=== PATIENT | female | born 1935 | race Caucasian/White ===

== ENCOUNTER 2019-10-24 14:33 | Emergency (ER) | payer MEDICARE, OTHER ==
[2019-10-24 14:50] VITALS: BP 134/43; PULSE 81
--- NOTE | 2019-10-24 15:07 | EDM.PDOC ---
ED HPI GENERAL MEDICAL PROBLEM - General Chief Complaint: General Time Seen by Provider: 10/24/19 15:00 Source of Information: Reports: Patient, Family History Limitations: Reports: No Limitations - History of Present Illness INITIAL COMMENTS - FREE TEXT/NARRATIVE: Patient comes emergency department today with her son with concerns of bleeding from surgical incision site. About 10 days ago the patient was bridged on her Coumadin which she takes for history of strokes with Lovenox and had a biopsy done in the left axilla with concerns of metastatic breast cancer. She developed a hematoma following the surgery. Has been followed by her primary care doctor Dr. Comfort Abreu in the clinic. Hematoma they discontinued her Coumadin and she started it again on Thursday and she has taken 2 doses of it. Today she noticed that she started draining blood from the incision site of the left axilla. No recent falls trauma or injury to the area. The hematoma really has not expanded and it is about the same size she relates but the pressure and the pain that she has had is actually improved quite a bit ever since the bleeding started. No weakness dizziness lightheadedness. No chest pain no shortness of breath or difficulty breathing. - Related Data Allergies Allergy/AdvReac Type Severity Reaction Status Date / Time No Known Allergies Allergy Verified 10/24/19 14:46 Past Medical History Oncologic (Cancer) History: Reports: Breast Social & Family History - Tobacco Use Smoking Status *Q: Never Smoker ED ROS GENERAL - Review of Systems Review Of Systems: See Below ED EXAM, GENERAL - Physical Exam Exam: See Below Exam Limited By: No Limitations General Appearance: Alert, WD/WN, No Apparent Distress Respiratory/Chest: No Respiratory Distress, Lungs Clear, No Accessory Muscle Use , Chest Non-Tender Cardiovascular: Normal Peripheral Pulses, Regular Rate, Rhythm Peripheral Pulses: 2+: Radial (L), Radial (R) Extremities: Other (In the left axilla there is a transverse incision with a small amount of dripping blood. The hematoma in the axilla is very hard and not boggy. The incision is well approximated. There is quite a bit of bruising to the axilla and the inner left humerus as well as the left breast. This appears to be quite old as it is in multiple stages of yellow and green and purple.) Neurological: Alert, Oriented, Normal Cognition, No Motor/Sensory Deficits Psychiatric: Normal Affect, Normal Mood Skin Exam: Warm, Dry Course - Vital Signs Last Recorded V/S: Last Vital Signs Temp 37.3 C 10/24/19 14:47 Pulse 81 10/24/19 14:47 Resp 16 10/24/19 14:47 BP 134/43 L 10/24/19 14:47 Pulse Ox 98 10/24/19 14:47 - Orders/Labs/Meds Labs: Laboratory Tests 10/24/19 10/24/19 Range/Units 15:14 15:14 WBC 12.5 H (4.0-10.0) x10^3/uL RBC 3.38 L (4.00-5.50) x10^6/uL Hgb 10.3 L (12.0-16.0) g/dL Hct 32.0 L (33.0-47.0) % MCV 94.7 H (78.0-93.0) fL MCH 30.5 (26.0-32.0) pg MCHC 32.2 (32.0-36.0) g/dL RDW Coeff of Lali 14.4 (10.0-15.0) % Plt Count 377 (130-400) x10^3/uL Neut % (Auto) 71.6 (50.0-80.0) % Lymph % (Auto) 10.2 L (25.0-50.0) % Sandoval % (Auto) 16.6 H (2.0-11.0) % Eos % (Auto) 1.4 (0.0-4.0) % Baso % (Auto) 0.2 (0.2-1.2) % PT 12.0 (10.0-12.8) SEC INR 1.1 L (2.0-3.5) APTT 27.3 (24.0-36.0) SEC - Re-Assessments/Exams Free Text/Narrative Re-Assessment/Exam: 10/24/19 16:30 Hemoglobin is down just under a gram. Her INR is 1.1. This really is a presentation of a hematoma that has started to drain. I really do not see any active bleeding. The patient actually feels better and the hematoma has improved in size according to the patient. The draining of the blood that she has is from the hematoma breaking down. We will have her recheck her hemoglobin tomorrow as well as her INR as planned and she does see her surgeon on return if bleeding worsens by any means she is comfortable with this plan her and her son's questions are answered. Departure - Departure Time of Disposition: 16:25 Disposition: Home, Self-Care 01 Clinical Impression: Postoperative haematoma Qualifiers: Surgical complication system/body Area: subcutaneous tissue Procedure type: non -dermatologic Qualified Code(s): L76.32 - Postprocedural hematoma of skin and subcutaneous tissue following other procedure - Discharge Information Referrals: Comfort Abreu, [Primary Care Provider] - Forms: ED Department Discharge Additional Instructions: Have your labs checked tomorrow as well in the clinic to include your INR and Hemoglobin. Your INR today was 1.1 and hgb 10.4. Keep a pressure dressing on the surgical site until you see the surgeon on thursday as planned. Return to the ED if new or worsening symptoms. Sepsis Event Note - Evaluation Sepsis Screening Result: No Definite Risk - Focused Exam Vital Signs: Vital Signs Temp Pulse Resp BP Pulse Ox 10/24/19 14:47 37.3 C 81 16 134/43 L 98 Date Exam was Performed: 10/24/19 Time Exam was Performed: 16:26 - Assessment/Plan Assessment:: Draining post op hematoma of the left axilla. Chronic anti-coagulation. Plan: Have your labs checked tomorrow as well in the clinic to include your INR and Hemoglobin. Your INR today was 1.1 and hgb 10.4. Keep a pressure dressing on the surgical site until you see the surgeon on thursday as planned. Return to the ED if new or worsening symptoms.
[2019-10-24 15:49] LABS: PTT,PARTIAL THROMBOPLSTIN TIME 27.3 SEC (24.0-36.0)
== END 2019-10-24 16:40 | disposition home or self-care (01) ==
LOC: VM.ED 14:33
DX: L76.32 Postprocedural hematoma of skin and subcutaneous tissue following other procedure (principal); Z79.01 Long term (current) use of anticoagulants
CPT/HCPCS: 36415; 85025; 85610; 85730; 99283; 99283-GF

== ENCOUNTER 2019-10-31 04:59 | Emergency (ER) | payer MEDICARE, OTHER ==
--- NOTE | 2019-10-31 05:16 | EDM.PDOC ---
ED HPI GENERAL MEDICAL PROBLEM - General Chief Complaint: Neuro Symptoms/Deficits Stated Complaint: stroke code Time Seen by Provider: 10/31/19 04:55 Source of Information: Reports: Patient, Family History Limitations: Reports: Language Barrier - History of Present Illness INITIAL COMMENTS - FREE TEXT/NARRATIVE: Pt. presents to ER with history of severe L sided upper and lower extremity weakness, L sided pronator drift, slurred speech, and L sided facial droop. Last known well approx. 10PM when the patient went to bed. She was symptomatic when she woke to use the bathroom this AM. Pt. son states that she has a history of R sided CVA (ischemic, L MCA, 5 years ago) and states that she always has some slurred speech, but states that with rehabilitation this has improved and she is readily understandable. Pt. was seen in ER for postoperative hematoma/bleeding following a breast biopsy. Son states that that patient's coumadin was discontinued for a time and it was restarted last Thursday or . Her last known INR was 1.1 on 10/23. Pt. denies any recent fall or trauma. No chest pain or shortness of breath. No recent cough, chest congestion, fever or chills. Pt. is starting Arimedex at this point for the breast cancer. Son states that she is a code 1. Pt. 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 At this point, they are wanting to proceed possible treatment of this stroke. Onset: Today - Related Data Allergies Allergy/AdvReac Type Severity Reaction Status Date / Time No Known Allergies Allergy Verified 10/31/19 05:04 Home Meds: Home Meds Atenolol [Tenormin] 50 mg PO ASDIRECTED 10/24/19 [History] Digoxin 125 mcg PO DAILY 10/24/19 [History] Felodipine [Felodipine ER] 2.5 mg PO DAILY 10/24/19 [History] Fluticasone Furoate [Arnuity Ellipta] 200 mcg IH DAILY 10/24/19 [History] Furosemide [Lasix] 40 mg PO DAILY 10/24/19 [History] Losartan [Cozaar] 50 mg PO DAILY 10/24/19 [History] Mirtazapine [Remeron] 7.5 mg PO BEDTIME 10/24/19 [History] Montelukast Sodium [Singulair] 10 mg PO DAILY 10/24/19 [History] Omeprazole Magnesium [Prilosec Otc] 20 mg PO DAILY 10/24/19 [History] Pravastatin Sodium [Pravachol] 20 mg PO DAILY 10/24/19 [History] Warfarin [Coumadin] 2.5 mg PO ASDIRECTED 10/24/19 [History] Acetaminophen [Pain Reliever] 1 - 2 tab PO Q4HR PRN 10/31/19 [History] Calcium Carbonate 1,200 mg PO DAILY 10/31/19 [History] Cyanocobalamin (Vitamin B-12) [B-12] 1,000 mcg PO DAILY 10/31/19 [History] Hydrocodone/Acetaminophen [[place] 5-325 Tablet] 0.5 - 1 tab PO Q6H PRN 10/31/19 [ History] Vit A/C/E AC/Znox/Cupric Oxide [Eye Vitamin-Minerals Tablet] 1 each PO DAILY 01/13 [History] Past Medical History Oncologic (Cancer) History: Reports: Breast ED ROS GENERAL - Review of Systems Review Of Systems: See Below Constitutional: Reports: No Symptoms. Denies: Fever, Chills, Malaise HEENT: Reports: No Symptoms Respiratory: Reports: No Symptoms Cardiovascular: Reports: No Symptoms Endocrine: Reports: No Symptoms GI/Abdominal: Reports: No Symptoms : Reports: No Symptoms Musculoskeletal: Reports: No Symptoms Skin: Reports: No Symptoms Neurological: Reports: Numbness, Paresthesia, Trouble Speaking, Weakness, Change in Speech Psychiatric: Reports: No Symptoms Hematologic/Lymphatic: Reports: No Symptoms Immunologic: Reports: No Symptoms ED EXAM, GENERAL - Physical Exam Exam: See Below Exam Limited By: No Limitations General Appearance: Alert, WD/WN, No Apparent Distress Eye Exam: Bilateral Eye: EOMI, Normal Fundi, Normal Inspection, PERRL Nose: Normal Inspection, Normal Mucosa, No Blood Throat/Mouth: Normal Inspection, Normal Lips, Normal Teeth, Normal Gums, Normal Oropharynx, Normal Voice, No Airway Compromise Head: Atraumatic, Normocephalic Neck: Normal Inspection, Supple, Non-Tender, Full Range of Motion Respiratory/Chest: No Respiratory Distress, Lungs Clear, Normal Breath Sounds, No Accessory Muscle Use, Chest Non-Tender Cardiovascular: No Edema, No Gallop, No JVD, No Murmur, Irregularly Irregular Peripheral Pulses: 3+: Dorsalis Pedis (L), Dorsalis Pedis (R), 4+: Radial (L), Radial (R) GI/Abdominal: Normal Bowel Sounds, Soft, Non-Tender, No Distention, No Mass (Female) Exam: Deferred Rectal (Female) Exam: Deferred Back Exam: Normal Inspection, Full Range of Motion Extremities: Normal Inspection, Normal Range of Motion, Non-Tender, No Pedal Edema, Normal Capillary Refill Neurological: Alert, Normal Cognition, Sensory/Motor Deficit, Other (See NIH stroke scale) Psychiatric: Normal Affect, Normal Mood Skin Exam: Warm, Dry, Intact, Normal Color, No Rash Lymphatic: No Adenopathy EKG INTERPRETATION Rhythm: A-Fib Course - Orders/Labs/Meds Orders: Active Orders 24 hr Category Date Time Status EKG Documentation Completion [RC] STAT Care 10/31/19 05:03 Ordered Head wo Cont [CT] Stat Exams 10/31/19 05:03 Ordered CBC WITH AUTO DIFF [HEME] Stat Lab 10/31/19 05:02 Ordered COMPREHENSIVE METABOLIC PN,CMP [CHEM] Stat Lab 10/31/19 05:02 Ordered CRP [C-REACTIVE PROTEIN] [CHEM] Stat Lab 10/31/19 05:03 Ordered INR,PT,PROTHROMBIN TIME [COAG] Stat Lab 10/31/19 05:02 Ordered TROPONIN I [CHEM] Stat Lab 10/31/19 05:02 Ordered TSH ULTRASENSITIVE [CHEM] Stat Lab 10/31/19 05:03 Ordered - Radiology Interpretation Free Text/Narrative:: Old left MCA stroke, no acute bleeding, trauma, or change from previous. Departure - Departure Time of Disposition: 05:56 Disposition: DC/Tfer to Acute Hospital 02 Condition: Critical Clinical Impression: CVA (cerebral vascular accident) - Discharge Information - Problem List Review Problem List Initiated/Reviewed/Updated: Yes - My Orders Last 24 Hours: My Active Orders 10/31/19 05:02 CBC WITH AUTO DIFF [HEME] Stat COMPREHENSIVE METABOLIC PN,CMP [CHEM] Stat INR,PT,PROTHROMBIN TIME [COAG] Stat TROPONIN I [CHEM] Stat 10/31/19 05:03 EKG Documentation Completion [RC] STAT Head wo Cont [CT] Stat CRP [C-REACTIVE PROTEIN] [CHEM] Stat TSH ULTRASENSITIVE [CHEM] Stat - Assessment/Plan Last 24 Hours: My Active Orders 10/31/19 05:02 CBC WITH AUTO DIFF [HEME] Stat COMPREHENSIVE METABOLIC PN,CMP [CHEM] Stat INR,PT,PROTHROMBIN TIME [COAG] Stat TROPONIN I [CHEM] Stat 10/31/19 05:03 EKG Documentation Completion [RC] STAT Head wo Cont [CT] Stat CRP [C-REACTIVE PROTEIN] [CHEM] Stat TSH ULTRASENSITIVE [CHEM] Stat Plan: Pt. will be transferred to [facility] as a stroke code. On initial exam, NIH stoke scale score was 13. She is outside of the window for TPA. Did discuss this with son who inquired about it. Also relative contraindication for previous CVA, as her INR is subtheraputic. Pt. will be transported via [facility] ground ambulance. She is a code 1. [facility] is accepting.
[2019-10-31 05:54] LABS: ANION GAP 11.2 mmol/L (10-20)
--- NOTE | 2019-10-31 08:41 | CT ---
[id number] CT/CT Head WO IV EXAM: CT Head WO IV CLINICAL DATA: LEFT SIDED FACIAL DROOP. DYSARTHRIA COMPARISON STUDY: December 23, 2012. FINDINGS: No intracranial hemorrhage, extra-axial fluid collection, mass, or acute ischemia. Stable area of encephalomalacia within the left MCA distribution consistent with old infarct. Generalized parenchymal atrophy with scattered areas of nonspecific white matter disease, commonly seen as sequela of chronic microvascular ischemia. Soft tissues are unremarkable. Paranasal sinuses and mastoid air cells are clear. IMPRESSION: No acute intracranial findings. Pk Bustamante DO 10/31/19 0872 Thank you for allowing us to participate in the care of your patient.
== END 2019-10-31 06:19 | disposition short-term general hospital (02) ==
LOC: VM.ED 04:59
DX: I63.9 Cerebral infarction, unspecified (principal); Z79.01 Long term (current) use of anticoagulants; Z79.899 Other long term (current) drug therapy
CPT/HCPCS: 36415; 70450; 80053; 84443; 84484; 85025; 85610; 86140; 93010; 99284-GF; 99285-25

== ENCOUNTER 2019-11-08 11:10 | Inpatient (IN) | payer MEDICARE, OTHER ==
[2019-11-11] MEDS ORDERED: Acetaminophen Susp 160 MG/5 ML 120 ML Bottle GTUBE PRN (13:27)
[2019-11-11] MEDS: [UNRECOGNIZED DRUG - OTHER] GTUBE SCH ×2 (16:55→21:46)
--- NOTE | 2019-11-11 19:52 | HP ---
CHIEF COMPLAINT: 1. A stroke, right middle cerebral artery due to subtherapeutic anticoagulation with dysarthria, dysphagia, and left-sided weakness. 2. Upper GI bleeding after G-tube placement, status post epiploic artery embolization on 11/06 as well as an EGD, which showed gastritis. 3. Acute blood loss anemia due to the GI bleeding status post 4 units of packed red blood cells. Hemoglobin 11 today. 4. Multilobar pneumonia, COVID testing negative. This is likely due to some aspiration from her stroke. She completed a course of antibiotics during her stay in [place] with Zithromax and Rocephin. The patient has been afebrile, but is still requiring some oxygen through her simple mask. 5. Acute on chronic diastolic heart failure exacerbation. EF 65%, 10/31/2019. 6. Atrial fibrillation with RVR. She has a known history of AFib. 7. Pseudogout in her fingers. This is improving. Looks like she got some Solu-Medrol while inpatient in [place]. 8. Recent diagnosis of stage III breast cancer of the left lymph nodes in axilla. Unfortunately, had a hematoma from her bleeding site. That has all resolved. The patient's Arimidex will be on hold as discussed with Oncology. 9. Leukocytosis. 10.Anemia. 11.Loose stools probably due to tube feeding. We will add some Benefiber. 12.Thyroid nodules. Recently evaluated and benign. 13.Essential hypertension, controlled. 14.Type 2 diabetes, diet controlled. 15.Hyperlipidemia and hypertriglyceridemia. 16.Mild depression. 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 18.Remote history of a previous stroke. The patient had made quite a good recovery from that. 19.Moderate mitral regurgitation. 20.Moderate pulmonary hypertension. 21.[id number] tricuspid regurgitation. REASON FOR ADMISSION: On the date of admission, this 84-year-old female who had an acute stroke with left-sided weakness on 10/30 was hospitalized for the past 11 days. Her course was complicated by spiking the fever and found to have pneumonia and the difficulty swallowing requiring a G-tube placement, which caused the GI bleed. The patient's condition has now stabilized to the point where she can be transitioned over to [facility] for further therapy. I spoke with her today. She was able to communicate with me things like she wanted the door left open, that she was in no pain. She could move her left arm and leg, could lift it up a little. The left arm was swollen, but it did not seem to bother her. She otherwise is receiving intermittent tube feeds. They are going well without difficulty. She is still having some blackish stools, but no signs of bleeding, and her hemoglobin had improved today. She was recently restarted on warfarin, got 4 mg today. Her last INR check on the was only 1.2. She is not coughing. She is using a simple mask, getting 4 L of oxygen to maintain her sats over 90%. The patient was specifically asked if she would want to return to [place] for further care and she said no. She also does not want CPR or breathing tube. She was changed to code 3 status. This was also discussed with her son, who was in agreement. SURGICAL HISTORY: Includes previous back surgery at the cervical spine in 1984, G-tube placement, hysterectomy, cataract surgeries, core needle biopsy in the past, lymph node biopsy recently. FAMILY HISTORY: Both parents are . A brother is . SOCIAL HISTORY: She is . She lives at home with her son, Herve. She has a daughter also in [place]. She is a nonsmoker. REVIEW OF SYSTEMS: The patient is unaware of any weight changes. No fever, no chills. She is having loose stools. No abdominal pain. Otherwise, all systems reviewed and found to be negative unless otherwise stated. PHYSICAL EXAMINATION: Vital Signs: Objectively, on exam on admission, her weight was 61.8 kg, temperature 96.8, pulse 82, blood pressure 152/78, respiratory rate 18, and O2 of 98% on the 4 L. General: She is in no acute distress. Heart: Irregularly irregular with murmur. Lungs: Lung sounds are decreased with just some rhonchi noted more centrally. Distally, some decreased sounds, but no wheezing. No crackles. Abdomen: Nondistended, soft, nontender. G-tube in place with no drainage. Extremities: Warm and dry. She does have that 2+ edema over the left hand. She is able to lift up the left arm and move her fingers. She is also able to move the left leg and ankle. Neurologic: Her speech is very expressive aphasia. She is clearly able to shake her head yes and no and get out a few noises but not clear words. Otherwise, mood, she appeared happy to actually see me and be back in [facility], but overall slightly down from how things were for her several weeks ago. Genitourinary: Otherwise, Nursing did report that she is incontinent of urine and stool. Bottom is red, but no open sores. Her left axilla was examined by myself. There is still some bruising over the breast, but her incisions are well healed. There is no ongoing bleeding. LABORATORY WORK: From [place] today shows the white count slightly up at 13.2, hemoglobin 11.2, platelets 300. Neutrophil percent was just 78. Yesterday, her white count was 12.3. Basic panel: Glucose 112, BUN 14, creatinine 0.6, sodium 144, potassium 3.9, chloride 105, bicarb 33, calcium 9.1, phosphorus normal, magnesium normal. Another Accu-Chek was 101. ASSESSMENT: 1. Acute right middle cerebral artery stroke due to atrial fibrillation, well off Coumadin due to a hematoma with dysarthria and dysphagia as well as left-sided weakness. She will be working with Speech, PT, and OT. 2. Dysphagia and malnutrition. The patient is on the tube feedings. We will get the dietitian involved. She is tolerating them so far, but we will add the Benefiber for the loose stools. We can check an albumin level in a few days; however, it was low on 11/02 at 3.1. 3. Recent diagnosis of stage III breast cancer. The Arimidex will be on hold. The patient and son understand that this is a palliative sort of treatment and I do not expect anything to happen over the next couple of weeks from this as we hope she improves with her swallowing and can take it at that point. 4. Anemia, mild now, but had some acute blood loss from gastrointestinal bleeding. This seems to have stabilized. We will recheck a hemoglobin tomorrow. 5. Mild leukocytosis. We will check a CBC tomorrow. 6. Multilobar pneumonia treated with Rocephin and azithromycin. We will continue her on the oxygen and wean as able. 7. Atrial fibrillation, chronic. Now, her rates are controlled. She has been restarted on Coumadin. 4 mg was given today. Then, she will be on her 2.5 mg dosing daily. I am going to recheck also tomorrow when I draw the CBC just to see where she is. 8. Essential hypertension. The patient is on her atenolol for that. She also is getting some Lasix through the G-tube. 9. Chronic diastolic heart failure. She is on Lasix. 10.Depression. She is on the Remeron. 11.Pseudogout. We will continue to monitor. PLAN: At this point, the patient will be admitted to swing bed cares with PT, OT, speech. Dietitian also to follow. We will have her working with therapies. We will see about getting something to help with swelling on that left arm. We will continue tube feedings. We will start Benefiber. We will monitor lab work. The patient is a code level 3. No bridging for DVT prophylaxis recommended at this point given her recent bleeding risk. She will receive suctioning as well like she did in [place]. We will have the head of the bed elevated with turning and repositioning. We will keep an eye out for any skin breakdown on her buttocks. MKA: 11/11/2019 16:52:40 MODL: 11/11/2019 19:45:18 /[id number]
[2019-11-11] MEDS: Montelukast 10 MG Tab GTUBE SCH (21:45)
[2019-11-11] MEDS: Mirtazapine 15 MG Tab GTUBE SCH (21:47)
[2019-11-12] MEDS: Digoxin 125 MCG Tab PO SCH (08:16)
[2019-11-12] MEDS: Cyanocobalamin (Vitamin B12) 1,000 MCG Tab GTUBE SCH (08:16)
[2019-11-12] MEDS: Furosemide 20 MG Tab GTUBE SCH (08:17)
[2019-11-12] MEDS: Atenolol 25 MG Tab GTUBE SCH (08:18)
[2019-11-12] MEDS: [UNRECOGNIZED DRUG - OTHER] GTUBE SCH ×3 (08:19→19:55)
[2019-11-12] MEDS: Mometasone Furoate Powder 220 MCG/Puff 14 Dose Inhaler INH SCH (08:20)
[2019-11-12] MEDS: Simvastatin 20 MG Tab GTUBE SCH (19:50)
[2019-11-12] MEDS: Montelukast 10 MG Tab GTUBE SCH (19:50)
[2019-11-12] MEDS: Warfarin 2.5 MG Tab GTUBE SCH (19:50)
[2019-11-12] MEDS: Mirtazapine 15 MG Tab GTUBE SCH (19:51)
[2019-11-12] MEDS ORDERED: Warfarin 2.5 MG Tab GTUBE SCH (20:00)
[2019-11-13] MEDS: Digoxin 125 MCG Tab PO SCH (07:47)
[2019-11-13] MEDS: Atenolol 25 MG Tab GTUBE SCH (07:47)
[2019-11-13] MEDS: Cyanocobalamin (Vitamin B12) 1,000 MCG Tab GTUBE SCH (07:48)
[2019-11-13] MEDS: Furosemide 20 MG Tab GTUBE SCH (07:48)
[2019-11-13] MEDS: Mometasone Furoate Powder 220 MCG/Puff 14 Dose Inhaler INH SCH (07:49)
[2019-11-13] MEDS: [UNRECOGNIZED DRUG - OTHER] GTUBE SCH ×3 (07:50→21:12)
[2019-11-13] MEDS ORDERED: Loperamide 2 MG Cap PO PRN (10:40)
[2019-11-13] MEDS: Loperamide 2 MG Cap GTUBE PRN ×2 (12:02→17:10)
--- NOTE | 2019-11-13 12:19 | PN ---
Progress Note for TONJA SPENCER Date: 11/13/2019 Room #: VM.217 An 84-year-old seen today on swing bed. The patient did have a stroke with left- sided weakness and dysphasia. She is able to communicate by pointing and expressing her needs. She clearly communicates that she would like to get in the chair today. Physical Therapy did work with her and it sounds like we should be able to do this with assist for pivot transfer today. She has some discomfort in her bladder area like she needs to pass urine. She has been incontinent. We will do a bladder scan. Her diarrhea has improved per nursing with the addition of the Benefiber. Otherwise, she denies that she is short of breath. She has transitioned over to a nasal cannula now. She is n.p.o. and on tube feeds. OBJECTIVE: Vital signs: Her weight was 60.9 kg, temp 96.5, pulse 98, blood pressure 140/70, respiratory rate 19, and O2 of 97% on 4 L. General: She is in no acute distress. Heart: Irregularly irregular. Lungs: Lung sounds show rhonchi throughout, especially more centrally. Some upper airway noise is suspected. No brendan crackles noted in her bases. Abdomen: Nondistended and nontender. G-tube in place. Possibly, the bladder does feel a tad distended, but no suprapubic tenderness. Extremities: Otherwise, her left arm continues to have some swelling. She has an Erasmo wrap in place. She is able to move it somewhat. Also, her legs have no edema. LABORATORY DATA: Lab work was done yesterday did show her to have a white count 15.4, up slightly from the day before, hemoglobin 11.2, platelets 262. INR 1.0. Glucoses have been excellent between 85 and 120 on b.i.d. checks. ASSESSMENT: 1. History of right middle cerebral artery stroke with atrial fibrillation while off Coumadin for hematoma. She will be working with therapies. We will try to get her up in the chair today. 2. Dysphagia and malnutrition. We will continue the tube feeds. Dietitian is following. 3. Recent diagnosis stage III breast cancer, Arimidex is on hold due to tube feeds. 4. Anemia. Hemoglobin is stable. 5. Leukocytosis. We will recheck a CBC tomorrow. 6. Multilobar pneumonia. She completed antibiotics while on her acute stay. We will continue to monitor for any fevers. 7. Possible urinary retention and bladder discomfort. We will do a bladder scan. If she has over 400 mL, we will do a straight-cath and send for UA. 8. Chronic atrial fibrillation. She is on Coumadin. We will check her INR tomorrow. 9. Essential hypertension. She is on atenolol. 10.Chronic diastolic heart failure, on Lasix. 11.Depression, on Remeron. 12.Pseudogout. We will continue to monitor. PLAN: At this point, we will continue swing bed cares. She is on no bridging for DVT prophylaxis per the specialists in [place]. We will continue to monitor lab work. We will ensure that she is emptying her bladder. We will get her up in the chair. MKA: 11/13/2019 10:18:10 MODL: 11/13/2019 12:14:03 /[id number]
[2019-11-13] MEDS: Mirtazapine 15 MG Tab GTUBE SCH (21:09)
[2019-11-13] MEDS: Simvastatin 20 MG Tab GTUBE SCH (21:10)
[2019-11-13] MEDS: Montelukast 10 MG Tab GTUBE SCH (21:10)
[2019-11-13] MEDS: Warfarin 2.5 MG Tab GTUBE SCH (21:11)
[2019-11-14 07:27] LABS: CHLORIDE,CL 101 mmol/L (98-107); SODIUM,NA 138 mmol/L (136-145)
[2019-11-14 07:28] LABS: ANION GAP 7.3 mmol/L (10-20)
[2019-11-14] MEDS: Atenolol 25 MG Tab GTUBE SCH (09:32)
[2019-11-14] MEDS: Furosemide 20 MG Tab GTUBE SCH (09:32)
[2019-11-14] MEDS: Digoxin 125 MCG Tab PO SCH (09:32)
[2019-11-14] MEDS: Cyanocobalamin (Vitamin B12) 1,000 MCG Tab GTUBE SCH (09:33)
[2019-11-14] MEDS: Mometasone Furoate Powder 220 MCG/Puff 14 Dose Inhaler INH SCH (09:33)
[2019-11-14] MEDS: [UNRECOGNIZED DRUG - OTHER] GTUBE SCH ×3 (09:33→19:56)
[2019-11-14] MEDS: Loperamide 2 MG Cap GTUBE PRN (09:35)
[2019-11-14] MEDS: Albuterol 0.083% 2.5 MG/3 ML Neb Soln INH PRN (12:45)
[2019-11-14] MEDS: Mirtazapine 15 MG Tab GTUBE SCH (19:38)
[2019-11-14] MEDS: Simvastatin 20 MG Tab GTUBE SCH (19:38)
[2019-11-14] MEDS: Montelukast 10 MG Tab GTUBE SCH (19:38)
[2019-11-14] MEDS ORDERED: Warfarin 5 MG Tab GTUBE SCH (20:00)
[2019-11-15] MEDS: Furosemide 20 MG Tab GTUBE SCH (08:41)
[2019-11-15] MEDS: Cyanocobalamin (Vitamin B12) 1,000 MCG Tab GTUBE SCH (08:41)
[2019-11-15] MEDS: Atenolol 25 MG Tab GTUBE SCH (08:41)
[2019-11-15] MEDS: Digoxin 125 MCG Tab PO SCH (08:41)
[2019-11-15] MEDS: Mometasone Furoate Powder 220 MCG/Puff 14 Dose Inhaler INH SCH (08:42)
[2019-11-15] MEDS: [UNRECOGNIZED DRUG - OTHER] GTUBE SCH ×3 (08:42→19:43)
--- NOTE | 2019-11-15 11:29 | PN ---
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 The patient's symptoms are aphasia, dysphagia and left-sided weakness. She has not had any fevers, but yesterday her white count was up to 20,000. Her UA had been normal, but she is retaining urine up to 600. She has had at least 3 straight cath. Decision was made to place a Drake today and patient is agreeable to that. She does have some skin breakdown on her buttocks from the incontinence of urine and the stools. Diarrhea seems to have improved with use of Benefiber and her tube feeds. The patient has been afebrile. She does not feel short of breath. It is very hard to understand her when she tries to communicate, but it appears that she is saying no to having any coughing, but she is still requiring suctioning. RT was able to suction her good today. OBJECTIVE: Vital Signs: Her temperature is 98.3, her pulse 99. She did have rates up to 117. She has a known history of atrial fibrillation. Blood pressure 126/63, respiratory rate 20, O2 of 97% on 4 L. Weight 58.2 kg. General: She is in no acute distress. Heart: Irregularly irregular. Lungs: Sounds do have some crackles over the left lung, but right lung appears clear. Abdomen: Positive bowel sounds with a G-tube in place. It is nontender. Extremities: Warm and dry. No edema. LABORATORY WORK: Again from yesterday, white count 20.4, hemoglobin 10.3, platelets 243. INR 1.1. Sodium 138, potassium 4.3, chloride 101, bicarb 34, BUN 13, creatinine 0.7. Blood sugars have all been between 92 and 133. ASSESSMENT AND PLAN: 1. Urinary retention, likely neurogenic with her stroke. We will place a Drake catheter today and keep it in for probably up to a week and then do a voiding trial. Hopefully, she is moving better. Physical Therapy says she is able to do some ambulation with assistance. 2. 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 Coumadin is restarted. We will check an INR tomorrow. Anticipate that this should improve because her dosing just started last Thursday. She will continue working with therapies. 3. Dysphagia and malnutrition. She is working with speech. Has a difficult time with swallowing so far. She will continue the tube feeds. Dietitian is following. 4. Recent diagnosis of stage III breast cancer. Her Arimidex is on hold. 5. Anemia. She has not had any ongoing bleeding. She did have a GI bleed from the G-tube placement. She is empirically on Prilosec. Her hemoglobin was 11.2, now 10.3. We will be repeating it tomorrow. 6. Multilobar pneumonia. She did complete a short course of antibiotics with Rocephin and Zithromax. However, due to increasing white count and chest x- ray still showing mostly a left-sided multi lobe infiltrate, we will start her empirically on Flagyl 500 t.i.d. for 5 days through the G-tube. This is due to the fact that she is having diarrhea already and Augmentin would create concern for C diff. She is incontinent of stool. 7. Essential hypertension. She is on her atenolol. 8. Atrial fibrillation with fast rates. We will continue to monitor. 9. Chronic diastolic heart failure, on Lasix. 10.Depression, Remeron. 11.Pseudogout. The patient is not having any current symptoms of arthritis pains in her hands. PLAN: At this point, the patient will continue swing bed cares. We will repeat lab work tomorrow for the blood counts, white count, and INR. We will keep her working with therapies. A catheter will be placed today and will start her on Flagyl for a 5-day course. Continue with suctioning. Her son was updated also he has been able to communicate with her via face time. MKA: 11/15/2019 10:53:50 MODL: 11/15/2019 11:24:01 /[id number] KALLIE
[2019-11-15] MEDS: metroNIDAZOLE 500 MG Tab GTUBE SCH ×2 (11:42→19:42)
[2019-11-15] MEDS: Albuterol 0.083% 2.5 MG/3 ML Neb Soln INH PRN (13:22)
--- NOTE | 2019-11-15 15:20 | CR ---
[id number] RAD/RAD Chest PA or AP 1V EXAM: FRONTAL CHEST INDICATION: LEUKOCYTOSIS. COMPARISON: November 23, 2017. DISCUSSION: There is stable cardiomegaly with development of borderline central vascular congestion. Small to moderate left effusion with associated left base atelectasis. Possible minimal right effusion. Left mid and lower lung infiltrates are new relative to the prior study. IMPRESSION: 1. Left mid and lower lung infiltrates are most consistent with pneumonia. 2. Stable cardiomegaly with element of mild central vascular congestion, small to moderate left and possible minimal right pleural effusion. Joshua Smith MD 11/15/19 1519 Thank you for allowing us to participate in the care of your patient.
[2019-11-15] MEDS: Simvastatin 20 MG Tab GTUBE SCH (19:42)
[2019-11-15] MEDS: Mirtazapine 15 MG Tab GTUBE SCH (19:42)
[2019-11-15] MEDS: Montelukast 10 MG Tab GTUBE SCH (19:42)
[2019-11-15] MEDS: Warfarin 2.5 MG Tab GTUBE SCH (19:42)
[2019-11-16] MEDS: metroNIDAZOLE 500 MG Tab GTUBE SCH ×3 (04:21→19:32)
[2019-11-16] MEDS: Furosemide 20 MG Tab GTUBE SCH (07:31)
[2019-11-16] MEDS: Atenolol 25 MG Tab GTUBE SCH (07:32)
[2019-11-16] MEDS: Cyanocobalamin (Vitamin B12) 1,000 MCG Tab GTUBE SCH (07:32)
[2019-11-16] MEDS: Digoxin 125 MCG Tab PO SCH (07:32)
[2019-11-16] MEDS: [UNRECOGNIZED DRUG - OTHER] GTUBE SCH ×3 (07:34→19:34)
[2019-11-16] MEDS: Mometasone Furoate Powder 220 MCG/Puff 14 Dose Inhaler INH SCH (09:29)
[2019-11-16] MEDS: Cefuroxime 250 MG Tab PO SCH ×2 (09:34→19:32)
[2019-11-16] MEDS: Warfarin 5 MG Tab GTUBE SCH (09:35)
[2019-11-16] MEDS: Mirtazapine 15 MG Tab GTUBE SCH (19:32)
[2019-11-16] MEDS: Simvastatin 20 MG Tab GTUBE SCH (19:33)
[2019-11-16] MEDS: Montelukast 10 MG Tab GTUBE SCH (19:33)
[2019-11-16] MEDS: Loperamide 2 MG Cap GTUBE PRN (20:29)
[2019-11-17] MEDS: metroNIDAZOLE 500 MG Tab GTUBE SCH ×3 (03:15→20:02)
[2019-11-17] MEDS: [UNRECOGNIZED DRUG - OTHER] GTUBE SCH ×3 (08:28→20:04)
[2019-11-17] MEDS: Cefuroxime 250 MG Tab PO SCH ×2 (08:28→20:02)
[2019-11-17] MEDS: Atenolol 25 MG Tab GTUBE SCH (08:29)
[2019-11-17] MEDS: Cyanocobalamin (Vitamin B12) 1,000 MCG Tab GTUBE SCH (08:33)
[2019-11-17] MEDS: Digoxin 125 MCG Tab PO SCH (08:33)
[2019-11-17] MEDS: Warfarin 5 MG Tab GTUBE SCH (08:34)
[2019-11-17] MEDS: Furosemide 20 MG Tab GTUBE SCH (08:34)
[2019-11-17] MEDS: Mometasone Furoate Powder 220 MCG/Puff 14 Dose Inhaler INH SCH ×2 (08:35→08:36)
[2019-11-17] MEDS: Simvastatin 20 MG Tab GTUBE SCH (20:02)
[2019-11-17] MEDS: Mirtazapine 15 MG Tab GTUBE SCH (20:02)
[2019-11-17] MEDS: Montelukast 10 MG Tab GTUBE SCH (20:02)
[2019-11-18] MEDS: metroNIDAZOLE 500 MG Tab GTUBE SCH (03:42)
[2019-11-18] MEDS: Mometasone Furoate Powder 220 MCG/Puff 14 Dose Inhaler INH SCH ×2 (08:48→08:52)
[2019-11-18] MEDS: Furosemide 20 MG Tab GTUBE SCH (08:49)
[2019-11-18] MEDS: Cefuroxime 250 MG Tab PO SCH (08:49)
[2019-11-18] MEDS: Warfarin 5 MG Tab GTUBE SCH (08:49)
[2019-11-18] MEDS: Digoxin 125 MCG Tab PO SCH (08:49)
[2019-11-18] MEDS: Atenolol 25 MG Tab GTUBE SCH (08:49)
[2019-11-18] MEDS: Cyanocobalamin (Vitamin B12) 1,000 MCG Tab GTUBE SCH (08:49)
[2019-11-18] MEDS: [UNRECOGNIZED DRUG - OTHER] GTUBE SCH ×3 (08:50→20:07)
[2019-11-18] MEDS ORDERED: [UNRECOGNIZED DRUG - OTHER] PO SCH (14:00)
[2019-11-18] MEDS ORDERED: ANASTROZOLE 1 MG PO SCH (14:00)
[2019-11-18] MEDS: ANASTROZOLE 1 MG PO SCH (14:26)
[2019-11-18] MEDS: [UNRECOGNIZED DRUG - OTHER] PO SCH (14:26)
[2019-11-18] MEDS: Cefuroxime 250 MG Tab GTUBE SCH (20:08)
[2019-11-18] MEDS: Montelukast 10 MG Tab GTUBE SCH (20:08)
[2019-11-18] MEDS: Simvastatin 20 MG Tab GTUBE SCH (20:08)
[2019-11-18] MEDS: Mirtazapine 15 MG Tab GTUBE SCH (20:08)
[2019-11-19] MEDS: Atenolol 25 MG Tab GTUBE SCH (08:18)
[2019-11-19] MEDS: Cyanocobalamin (Vitamin B12) 1,000 MCG Tab GTUBE SCH (08:19)
[2019-11-19] MEDS: Digoxin 125 MCG Tab PO SCH (08:19)
[2019-11-19] MEDS: Furosemide 20 MG Tab GTUBE SCH (08:19)
[2019-11-19] MEDS: Warfarin 5 MG Tab GTUBE SCH (08:19)
[2019-11-19] MEDS: Cefuroxime 250 MG Tab GTUBE SCH ×2 (08:19→19:34)
[2019-11-19] MEDS: Mometasone Furoate Powder 220 MCG/Puff 14 Dose Inhaler INH SCH (08:20)
[2019-11-19] MEDS: [UNRECOGNIZED DRUG - OTHER] GTUBE SCH ×3 (08:20→19:47)
[2019-11-19] MEDS: [UNRECOGNIZED DRUG - OTHER] PO SCH (09:03)
[2019-11-19] MEDS: ANASTROZOLE 1 MG PO SCH (09:03)
[2019-11-19] MEDS: Montelukast 10 MG Tab GTUBE SCH (19:34)
[2019-11-19] MEDS: Simvastatin 20 MG Tab GTUBE SCH (19:34)
[2019-11-19] MEDS: Mirtazapine 15 MG Tab GTUBE SCH (19:35)
[2019-11-20] MEDS: Cyanocobalamin (Vitamin B12) 1,000 MCG Tab GTUBE SCH (07:50)
[2019-11-20] MEDS: Digoxin 125 MCG Tab PO SCH (07:50)
[2019-11-20] MEDS: [UNRECOGNIZED DRUG - OTHER] GTUBE SCH ×3 (07:51→20:43)
[2019-11-20] MEDS: Warfarin 5 MG Tab GTUBE SCH (07:51)
[2019-11-20] MEDS: Cefuroxime 250 MG Tab GTUBE SCH ×2 (07:51→20:43)
[2019-11-20] MEDS: Furosemide 20 MG Tab GTUBE SCH (07:51)
[2019-11-20] MEDS: Atenolol 25 MG Tab GTUBE SCH (07:51)
[2019-11-20] MEDS: Loperamide 2 MG Cap GTUBE PRN ×2 (07:51→21:21)
[2019-11-20] MEDS: Mometasone Furoate Powder 220 MCG/Puff 14 Dose Inhaler INH SCH (07:52)
[2019-11-20] MEDS: ANASTROZOLE 1 MG PO SCH (07:52)
[2019-11-20] MEDS: [UNRECOGNIZED DRUG - OTHER] PO SCH (07:52)
[2019-11-20] MEDS: Lactobacillus Rhamnosus GG (Probiotic) Cap PO SCH (11:08)
[2019-11-20] MEDS: Simvastatin 20 MG Tab GTUBE SCH (20:43)
[2019-11-20] MEDS: Mirtazapine 15 MG Tab GTUBE SCH (20:43)
[2019-11-20] MEDS: Montelukast 10 MG Tab GTUBE SCH (20:43)
[2019-11-21] MEDS: Loperamide 2 MG Cap GTUBE PRN ×3 (00:30→20:00)
[2019-11-21 07:05] LABS: CHLORIDE,CL 99 mmol/L (98-107); SODIUM,NA 139 mmol/L (136-145)
[2019-11-21 07:06] LABS: ANION GAP 8.5 mmol/L (10-20)
[2019-11-21] MEDS: Digoxin 125 MCG Tab PO SCH (08:34)
[2019-11-21] MEDS: Lactobacillus Rhamnosus GG (Probiotic) Cap PO SCH (08:34)
[2019-11-21] MEDS: Warfarin 5 MG Tab GTUBE SCH (08:34)
[2019-11-21] MEDS: Furosemide 20 MG Tab GTUBE SCH (08:34)
[2019-11-21] MEDS: Atenolol 25 MG Tab GTUBE SCH (08:34)
[2019-11-21] MEDS: Mometasone Furoate Powder 220 MCG/Puff 14 Dose Inhaler INH SCH (08:34)
[2019-11-21] MEDS: Cyanocobalamin (Vitamin B12) 1,000 MCG Tab GTUBE SCH (08:34)
[2019-11-21] MEDS: [UNRECOGNIZED DRUG - OTHER] GTUBE SCH ×3 (08:35→20:01)
[2019-11-21] MEDS: ANASTROZOLE 1 MG PO SCH (08:41)
[2019-11-21] MEDS: [UNRECOGNIZED DRUG - OTHER] PO SCH (08:41)
[2019-11-21] MEDS: Cholestyramine/Aspartame Powder 4 GM Packet PO SCH (08:44)
[2019-11-21] MEDS: Mirtazapine 15 MG Tab GTUBE SCH (19:59)
[2019-11-21] MEDS: Montelukast 10 MG Tab GTUBE SCH (19:59)
[2019-11-21] MEDS: Simvastatin 20 MG Tab GTUBE SCH (20:06)
--- NOTE | 2019-11-21 20:48 | PN ---
Progress Note for TONJA SPENCER Date: 11/21/2019 Room #: VM.217 SUBJECTIVE: This is an 84-year-old on swing bed after a stroke resulting in dysphagia, requiring tube feeds, and left-sided weakness. The patient has continued to have loose stools and diarrhea. She is on Benefiber and has received Imodium. Her white count actually improved today to 10.5. She has completed treatment with Ceftin for pneumonia. She was also on Flagyl until her culture returned. She otherwise has had mildly elevated blood pressures, but denies any pain. Over the weekend, she was low in the 118s to 130s. No fever. No chills. OBJECTIVE: Vital Signs: Her temperature 98 degrees, weight 59.1 kg, pulse 72, blood pressure 141/64, respiratory rate 19, and O2 of 97 on 4 L. General: She is in no acute distress. Heart: Irregularly irregular. Lungs: Sounds are clear to auscultation bilaterally without crackles or wheezes. Abdomen: Nondistended, nontender. Extremities: Warm and dry. No edema. Left arm still swollen. She has some movement, but strength was not tested today. LABORATORY DATA: Lab work does show her to have white count 10.5; hemoglobin 10.4, stable; platelets 333. INR up to 1.9. Sodium 139, potassium 4.5, chloride 99, bicarb 36, BUN 12, creatinine 0.7, glucose 108, calcium 9.3. ASSESSMENT: 1. Healthcare-associated pneumonia, but seemed to improve with just the Ceftin and Flagyl. She has completed a course. 2. Urinary retention, catheter in place. She does not seem to mind the Drake. We will try a voiding trial next week. 3. 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 INR is nearly back to therapeutic. She is going to keep working with therapies. 4. Atrial fibrillation, rate controlled. We will continue 5 mg daily and recheck an INR in 2 days. 5. Dysphagia and malnutrition. We will continue tube feeds. We are working with the dietitian. 6. Recent diagnosis of stage III breast cancer. She is able to use Arimidex again. 7. Anemia, stable. She is empirically on Prilosec due to G-tube bleeding. We will continue with the same. 8. Essential hypertension. She is on her atenolol. A little bit high today. We will continue to monitor. 9. Diastolic heart failure, on Lasix. No signs of acute exacerbation. We will continue with the same. 10.Depression. Remeron. 11.Pseudogout. She has had no further issues. PLAN: At this point, the patient will continue on swing bed cares. We will evaluate her with lab work in a few more days. She has completed antibiotics, and we will remove her Drake next week for a voiding trial. She will continue working with therapies. MKA: 11/21/2019 17:08:20 MODL: 11/21/2019 20:41:35 /[id number]
[2019-11-22] MEDS: [UNRECOGNIZED DRUG - OTHER] GTUBE SCH ×3 (08:10→20:20)
[2019-11-22] MEDS: Cyanocobalamin (Vitamin B12) 1,000 MCG Tab GTUBE SCH (08:10)
[2019-11-22] MEDS: Atenolol 25 MG Tab GTUBE SCH (08:11)
[2019-11-22] MEDS: Digoxin 125 MCG Tab PO SCH (08:13)
[2019-11-22] MEDS: Warfarin 5 MG Tab GTUBE SCH (08:13)
[2019-11-22] MEDS: Cholestyramine/Aspartame Powder 4 GM Packet PO SCH (08:13)
[2019-11-22] MEDS: Furosemide 20 MG Tab GTUBE SCH (08:13)
[2019-11-22] MEDS: Mometasone Furoate Powder 220 MCG/Puff 14 Dose Inhaler INH SCH (08:15)
[2019-11-22] MEDS: ANASTROZOLE 1 MG GTUBE SCH (09:24)
[2019-11-22] MEDS: [UNRECOGNIZED DRUG - OTHER] GTUBE SCH (09:24)
[2019-11-22] MEDS: Mirtazapine 15 MG Tab GTUBE SCH (20:20)
[2019-11-22] MEDS: Montelukast 10 MG Tab GTUBE SCH (20:20)
[2019-11-22] MEDS: Simvastatin 20 MG Tab GTUBE SCH (20:20)
[2019-11-23] MEDS: Cholestyramine/Aspartame Powder 4 GM Packet PO SCH (08:53)
[2019-11-23] MEDS: Cyanocobalamin (Vitamin B12) 1,000 MCG Tab GTUBE SCH (08:53)
[2019-11-23] MEDS: Mometasone Furoate Powder 220 MCG/Puff 14 Dose Inhaler INH SCH (08:53)
[2019-11-23] MEDS: Warfarin 5 MG Tab GTUBE SCH (08:53)
[2019-11-23] MEDS: Furosemide 20 MG Tab GTUBE SCH (08:54)
[2019-11-23] MEDS: [UNRECOGNIZED DRUG - OTHER] GTUBE SCH ×3 (08:54→20:22)
[2019-11-23] MEDS: Atenolol 25 MG Tab GTUBE SCH (08:54)
[2019-11-23] MEDS: Digoxin 125 MCG Tab PO SCH (08:55)
[2019-11-23] MEDS: ANASTROZOLE 1 MG GTUBE SCH (09:21)
[2019-11-23] MEDS: [UNRECOGNIZED DRUG - OTHER] GTUBE SCH (09:21)
[2019-11-23] MEDS: Montelukast 10 MG Tab GTUBE SCH (20:20)
[2019-11-23] MEDS: Simvastatin 20 MG Tab GTUBE SCH (20:21)
[2019-11-23] MEDS: Warfarin 2 MG Tab GTUBE SCH (20:21)
[2019-11-23] MEDS: Mirtazapine 15 MG Tab GTUBE SCH (20:21)
[2019-11-23] MEDS: Loperamide 2 MG Cap GTUBE PRN (20:21)
[2019-11-24] MEDS: Mometasone Furoate Powder 220 MCG/Puff 14 Dose Inhaler INH SCH (07:34)
[2019-11-24] MEDS: Digoxin 125 MCG Tab PO SCH (07:34)
[2019-11-24] MEDS: ANASTROZOLE 1 MG GTUBE SCH (07:34)
[2019-11-24] MEDS: Furosemide 20 MG Tab GTUBE SCH (07:34)
[2019-11-24] MEDS: Loperamide 2 MG Cap GTUBE PRN (07:34)
[2019-11-24] MEDS: [UNRECOGNIZED DRUG - OTHER] GTUBE SCH (07:34)
[2019-11-24] MEDS: Atenolol 25 MG Tab GTUBE SCH (07:34)
[2019-11-24] MEDS: Cyanocobalamin (Vitamin B12) 1,000 MCG Tab GTUBE SCH (07:34)
[2019-11-24] MEDS: [UNRECOGNIZED DRUG - OTHER] GTUBE SCH ×3 (07:34→19:41)
[2019-11-24] MEDS: Cholestyramine/Aspartame Powder 4 GM Packet PO SCH (07:35)
[2019-11-24] MEDS: Simvastatin 20 MG Tab GTUBE SCH (19:41)
[2019-11-24] MEDS: Warfarin 2 MG Tab GTUBE SCH (19:41)
[2019-11-24] MEDS: Mirtazapine 15 MG Tab GTUBE SCH (19:41)
[2019-11-24] MEDS: Montelukast 10 MG Tab GTUBE SCH (19:41)
[2019-11-25] MEDS: Cholestyramine/Aspartame Powder 4 GM Packet PO SCH (08:04)
[2019-11-25] MEDS: Furosemide 20 MG Tab GTUBE SCH (08:04)
[2019-11-25] MEDS: Cyanocobalamin (Vitamin B12) 1,000 MCG Tab GTUBE SCH (08:04)
[2019-11-25] MEDS: Atenolol 25 MG Tab GTUBE SCH (08:04)
[2019-11-25] MEDS: Digoxin 125 MCG Tab PO SCH (08:05)
[2019-11-25] MEDS: [UNRECOGNIZED DRUG - OTHER] GTUBE SCH ×3 (08:05→20:04)
[2019-11-25] MEDS: Mometasone Furoate Powder 220 MCG/Puff 14 Dose Inhaler INH SCH (08:05)
[2019-11-25] MEDS: [UNRECOGNIZED DRUG - OTHER] GTUBE SCH (08:06)
[2019-11-25] MEDS: ANASTROZOLE 1 MG GTUBE SCH (08:06)
[2019-11-25] MEDS: Loperamide 2 MG Cap GTUBE PRN ×2 (08:08→23:31)
[2019-11-25] MEDS: Montelukast 10 MG Tab GTUBE SCH (20:03)
[2019-11-25] MEDS: Warfarin 5 MG Tab GTUBE SCH (20:03)
[2019-11-25] MEDS: Mirtazapine 15 MG Tab GTUBE SCH (20:04)
[2019-11-25] MEDS: Simvastatin 20 MG Tab GTUBE SCH (20:04)
[2019-11-26] MEDS: Cyanocobalamin (Vitamin B12) 1,000 MCG Tab GTUBE SCH (07:42)
[2019-11-26] MEDS: Cholestyramine/Aspartame Powder 4 GM Packet PO SCH (07:42)
[2019-11-26] MEDS: Atenolol 25 MG Tab GTUBE SCH (07:42)
[2019-11-26] MEDS: Loperamide 2 MG Cap GTUBE PRN ×2 (07:42→23:31)
[2019-11-26] MEDS: ANASTROZOLE 1 MG GTUBE SCH (07:43)
[2019-11-26] MEDS: [UNRECOGNIZED DRUG - OTHER] GTUBE SCH (07:43)
[2019-11-26] MEDS: [UNRECOGNIZED DRUG - OTHER] GTUBE SCH ×3 (07:43→20:37)
[2019-11-26] MEDS: Furosemide 20 MG Tab GTUBE SCH (07:43)
[2019-11-26] MEDS: Mometasone Furoate Powder 220 MCG/Puff 14 Dose Inhaler INH SCH (07:43)
[2019-11-26] MEDS: Digoxin 125 MCG Tab PO SCH (07:43)
[2019-11-26] MEDS: Simvastatin 20 MG Tab GTUBE SCH (20:35)
[2019-11-26] MEDS: Mirtazapine 15 MG Tab GTUBE SCH (20:35)
[2019-11-26] MEDS: Montelukast 10 MG Tab GTUBE SCH (20:36)
[2019-11-26] MEDS: Warfarin 5 MG Tab GTUBE SCH (20:36)
[2019-11-27] MEDS: [UNRECOGNIZED DRUG - OTHER] GTUBE SCH ×3 (07:49→20:35)
[2019-11-27] MEDS: ANASTROZOLE 1 MG GTUBE SCH (07:49)
[2019-11-27] MEDS: [UNRECOGNIZED DRUG - OTHER] GTUBE SCH (07:49)
[2019-11-27] MEDS: Furosemide 20 MG Tab GTUBE SCH (07:49)
[2019-11-27] MEDS: Atenolol 25 MG Tab GTUBE SCH (07:49)
[2019-11-27] MEDS: Loperamide 2 MG Cap GTUBE PRN ×3 (07:49→20:39)
[2019-11-27] MEDS: Cyanocobalamin (Vitamin B12) 1,000 MCG Tab GTUBE SCH (07:49)
[2019-11-27] MEDS: Digoxin 125 MCG Tab PO SCH (07:49)
[2019-11-27] MEDS: Cholestyramine/Aspartame Powder 4 GM Packet PO SCH (07:50)
[2019-11-27] MEDS: Mometasone Furoate Powder 220 MCG/Puff 14 Dose Inhaler INH SCH (07:50)
[2019-11-27] MEDS: Montelukast 10 MG Tab GTUBE SCH (20:34)
[2019-11-27] MEDS: Simvastatin 20 MG Tab GTUBE SCH (20:34)
[2019-11-27] MEDS: Mirtazapine 15 MG Tab GTUBE SCH (20:35)
[2019-11-27] MEDS: Warfarin 5 MG Tab GTUBE SCH (20:35)
[2019-11-28 06:52] LABS: ANION GAP 9.7 mmol/L (10-20); CHLORIDE,CL 101 mmol/L (98-107); SODIUM,NA 139 mmol/L (136-145)
[2019-11-28] MEDS: Atenolol 25 MG Tab GTUBE SCH (07:41)
[2019-11-28] MEDS: Cyanocobalamin (Vitamin B12) 1,000 MCG Tab GTUBE SCH (07:41)
[2019-11-28] MEDS: Loperamide 2 MG Cap GTUBE PRN ×2 (07:41→17:24)
[2019-11-28] MEDS: Digoxin 125 MCG Tab PO SCH (07:41)
[2019-11-28] MEDS: Furosemide 20 MG Tab GTUBE SCH (07:41)
[2019-11-28] MEDS: ANASTROZOLE 1 MG GTUBE SCH (07:42)
[2019-11-28] MEDS: [UNRECOGNIZED DRUG - OTHER] GTUBE SCH (07:42)
[2019-11-28] MEDS: [UNRECOGNIZED DRUG - OTHER] GTUBE SCH ×3 (07:43→20:50)
[2019-11-28] MEDS: Cholestyramine/Aspartame Powder 4 GM Packet PO SCH (07:43)
[2019-11-28] MEDS: Mometasone Furoate Powder 220 MCG/Puff 14 Dose Inhaler INH SCH (07:43)
--- NOTE | 2019-11-28 13:20 | PCM.SN.2 ---
- Free Text/Narrative Note: INR up to 3 we I was planning to go to 4 mg daily and repeat . I think her dose is probably around 30-32 mg per week so 28 mg would be too low. After I further discussed with the INR clinic they stated they prefer 5 and 2.5 so I confirmed with pharmacy that we have 2.5 mg pills so I will change to 5 mg daily but 2.5 on Thursday and Fridays. Son updated how patient was doing and if she was getting her Arimidex again which she is. Previous to her stroke her dosing was 5 mg on Thursday and 2.5 mg the rest of the week.
[2019-11-28] MEDS ORDERED: Warfarin 2 MG Tab GTUBE SCH (20:00)
[2019-11-28] MEDS ORDERED: Warfarin 2.5 MG Tab GTUBE SCH (20:00)
[2019-11-28] MEDS: Mirtazapine 15 MG Tab GTUBE SCH (20:50)
[2019-11-28] MEDS: Simvastatin 20 MG Tab GTUBE SCH (20:50)
[2019-11-28] MEDS: Montelukast 10 MG Tab GTUBE SCH (20:50)
[2019-11-29] MEDS: Atenolol 25 MG Tab GTUBE SCH (07:31)
[2019-11-29] MEDS: Loperamide 2 MG Cap GTUBE PRN ×2 (07:31→17:16)
[2019-11-29] MEDS: Cyanocobalamin (Vitamin B12) 1,000 MCG Tab GTUBE SCH (07:32)
[2019-11-29] MEDS: Digoxin 125 MCG Tab PO SCH (07:32)
[2019-11-29] MEDS: [UNRECOGNIZED DRUG - OTHER] GTUBE SCH ×3 (07:33→20:20)
[2019-11-29] MEDS: Mometasone Furoate Powder 220 MCG/Puff 14 Dose Inhaler INH SCH (07:33)
[2019-11-29] MEDS: Furosemide 20 MG Tab GTUBE SCH (07:33)
[2019-11-29] MEDS ORDERED: Cholestyramine/Sucrose Powder 4 GM Packet PO SCH (08:00)
--- NOTE | 2019-11-29 09:35 | PN ---
Progress Note for TONJA SPENCER Date: 11/29/2019 Room #: VM.217 HISTORY OF PRESENT ILLNESS: This is an 84-year-old on swing bed recovering after a right middle cerebral artery stroke. She is making appropriate progress with therapies, PT and OT, and speech. She is able to swallow just ice chips and otherwise has been on tube feedings. She continues to have significant diarrhea and loose stools despite Benefiber, Questran, and Imodium. She denies abdominal pain. Her white count has come down after we treated her for pneumonia. She has been getting Kefir. She also was on Flagyl while being treated for pneumonia. She was able to be weaned off oxygen. She denies that she is short of breath. Otherwise, she does have a small area of skin breakdown from the incontinence of stool, but that has not gotten any worse. Nursing is using barrier creams. It should be noted that she had more coughing per nursing overnight and did require suctioning. However, patient currently denies a cough. OBJECTIVE: Vital Signs: Her weight is 57.2 kg, pulse 69, blood pressure 148/67, respiratory rate is 15, O2 which had been 96 on room air is down to 93. LABORATORY DATA: Lab work done yesterday did show white count 10.1, hemoglobin 11.7, platelets 405. INR 3. Sodium 139, potassium 4.7, chloride 101, bicarb 33, BUN 15, creatinine 0.7, calcium 9.5, glucose 99. ASSESSMENT AND PLAN: 1. Healthcare-associated pneumonia, treated with Ceftin and Flagyl now with more coughing. Again, let us repeat a chest x-ray today. 2. Urinary retention. Catheter was removed yesterday. We are doing bladder scan. She has been voiding okay. 3. Right middle cerebral artery stroke due to atrial fibrillation while off Coumadin. She has been doing well, making progress, working with therapies. 4. Atrial fibrillation. She is on Coumadin. INR is therapeutic. I have been adjusting the doses. 5. Dysphagia and malnutrition. We have been in touch now with Dietary to try to find a different tube feeding formula to help with her diarrhea. 6. Diarrhea, likely due to tube feeds. Continue the Benefiber. I will increase her Questran. 7. Stage III breast cancer. She has been getting her Arimidex. 8. Anemia. She is on Prilosec due to the G-tube placement and bleeding. She has had no further bleeding. 9. Essential hypertension, on atenolol. 10.Diastolic heart failure, on Lasix. 11.Depression, on Remeron. PLAN: At this point, patient will continue swing bed cares, working with therapies. We will repeat a chest x-ray today. We will discontinue her Asmanex inhaler as she is unable to use it appropriately. Discussed with analysis director we will try continuous rather than bolus tube feeds. MKA: 11/29/2019 08:57:41 MODL: 11/29/2019 09:25:37 /[id number] MTDChristiana
[2019-11-29] MEDS: ANASTROZOLE 1 MG GTUBE SCH (10:55)
[2019-11-29] MEDS: [UNRECOGNIZED DRUG - OTHER] GTUBE SCH (10:55)
--- NOTE | 2019-11-29 11:19 | CR ---
[id number] RAD/RAD Chest PA or AP 1V EXAM: FRONTAL CHEST INDICATION: COUGH. COMPARISON: November 15, 2019. DISCUSSION: There is stable cardiomegaly with mild central vascular congestion. Significant interval improvement in left lung infiltrates relative to the prior study with mild residual interstitial and alveolar infiltrates. There is a small left pleural effusion which is also smaller. IMPRESSION: 1. Mild congestive heart failure. 2. Significant improvement in left lung infiltrates with mild residual interstitial and airspace opacities scattered throughout the left lung. Joshua Smith MD 11/29/19 6028 Thank you for allowing us to participate in the care of your patient.
[2019-11-29] MEDS: Cholestyramine/Sucrose Powder 4 GM Packet PO SCH (20:14)
[2019-11-29] MEDS: Mirtazapine 15 MG Tab GTUBE SCH (20:15)
[2019-11-29] MEDS: Montelukast 10 MG Tab GTUBE SCH (20:16)
[2019-11-29] MEDS: Simvastatin 20 MG Tab GTUBE SCH (20:16)
[2019-11-29] MEDS: Warfarin 5 MG Tab GTUBE SCH (20:16)
[2019-11-30] MEDS: Furosemide 20 MG Tab GTUBE SCH (08:41)
[2019-11-30] MEDS: Digoxin 125 MCG Tab PO SCH (08:41)
[2019-11-30] MEDS: Cyanocobalamin (Vitamin B12) 1,000 MCG Tab GTUBE SCH (08:41)
[2019-11-30] MEDS: Atenolol 25 MG Tab GTUBE SCH (08:43)
[2019-11-30] MEDS: Cholestyramine/Sucrose Powder 4 GM Packet PO SCH ×2 (08:44→19:54)
[2019-11-30] MEDS: [UNRECOGNIZED DRUG - OTHER] GTUBE SCH ×3 (08:50→19:53)
[2019-11-30] MEDS: [UNRECOGNIZED DRUG - OTHER] GTUBE SCH (09:08)
[2019-11-30] MEDS: ANASTROZOLE 1 MG GTUBE SCH (09:08)
[2019-11-30] MEDS: Simvastatin 20 MG Tab GTUBE SCH (19:54)
[2019-11-30] MEDS: Mirtazapine 15 MG Tab GTUBE SCH (19:54)
[2019-11-30] MEDS: Warfarin 5 MG Tab GTUBE SCH (19:55)
[2019-11-30] MEDS: Montelukast 10 MG Tab GTUBE SCH (19:55)
[2019-12-01] MEDS: Cholestyramine/Sucrose Powder 4 GM Packet PO SCH ×2 (08:35→19:59)
[2019-12-01] MEDS: Digoxin 125 MCG Tab PO SCH (08:36)
[2019-12-01] MEDS: Furosemide 20 MG Tab GTUBE SCH (08:36)
[2019-12-01] MEDS: Cyanocobalamin (Vitamin B12) 1,000 MCG Tab GTUBE SCH (08:36)
[2019-12-01] MEDS: Atenolol 25 MG Tab GTUBE SCH (08:36)
[2019-12-01] MEDS: [UNRECOGNIZED DRUG - OTHER] GTUBE SCH (08:37)
[2019-12-01] MEDS: ANASTROZOLE 1 MG GTUBE SCH (08:37)
[2019-12-01] MEDS: [UNRECOGNIZED DRUG - OTHER] GTUBE SCH ×3 (08:37→20:05)
[2019-12-01] MEDS: Mirtazapine 15 MG Tab GTUBE SCH (20:00)
[2019-12-01] MEDS: Montelukast 10 MG Tab GTUBE SCH (20:00)
[2019-12-01] MEDS: Simvastatin 20 MG Tab GTUBE SCH (20:00)
[2019-12-02] MEDS: Digoxin 125 MCG Tab PO SCH (08:19)
[2019-12-02] MEDS: Cholestyramine/Sucrose Powder 4 GM Packet PO SCH ×2 (08:19→19:58)
[2019-12-02] MEDS: Atenolol 25 MG Tab GTUBE SCH (08:20)
[2019-12-02] MEDS: Furosemide 20 MG Tab GTUBE SCH (08:20)
[2019-12-02] MEDS: Cyanocobalamin (Vitamin B12) 1,000 MCG Tab GTUBE SCH (08:22)
[2019-12-02] MEDS: [UNRECOGNIZED DRUG - OTHER] GTUBE SCH ×3 (08:33→19:59)
[2019-12-02] MEDS: [UNRECOGNIZED DRUG - OTHER] GTUBE SCH (08:49)
[2019-12-02] MEDS: ANASTROZOLE 1 MG GTUBE SCH (08:49)
[2019-12-02] MEDS: Mirtazapine 15 MG Tab GTUBE SCH (19:58)
[2019-12-02] MEDS: Simvastatin 20 MG Tab GTUBE SCH (19:58)
[2019-12-02] MEDS: Montelukast 10 MG Tab GTUBE SCH (19:59)
[2019-12-02] MEDS ORDERED: Warfarin 2.5 MG Tab GTUBE SCH (20:00)
[2019-12-03] MEDS: ANASTROZOLE 1 MG GTUBE SCH (08:18)
[2019-12-03] MEDS: Cholestyramine/Sucrose Powder 4 GM Packet PO SCH ×2 (08:18→19:52)
[2019-12-03] MEDS: [UNRECOGNIZED DRUG - OTHER] GTUBE SCH (08:18)
[2019-12-03] MEDS: Furosemide 20 MG Tab GTUBE SCH (08:20)
[2019-12-03] MEDS: [UNRECOGNIZED DRUG - OTHER] GTUBE SCH ×2 (08:21→11:07)
[2019-12-03] MEDS: Cyanocobalamin (Vitamin B12) 1,000 MCG Tab GTUBE SCH (08:22)
[2019-12-03] MEDS: Atenolol 25 MG Tab GTUBE SCH (08:24)
[2019-12-03] MEDS: Digoxin 125 MCG Tab PO SCH (08:24)
[2019-12-03] MEDS: BENEFIBER GTUBE SCH ×2 (11:03→19:52)
[2019-12-03] MEDS: Mirtazapine 15 MG Tab GTUBE SCH (19:51)
[2019-12-03] MEDS: Simvastatin 20 MG Tab GTUBE SCH (19:51)
[2019-12-03] MEDS: Montelukast 10 MG Tab GTUBE SCH (19:51)
[2019-12-03] MEDS: Warfarin 5 MG Tab GTUBE SCH (19:51)
[2019-12-04] MEDS: [UNRECOGNIZED DRUG - OTHER] GTUBE SCH (08:16)
[2019-12-04] MEDS: Cholestyramine/Sucrose Powder 4 GM Packet PO SCH ×2 (08:16→19:20)
[2019-12-04] MEDS: ANASTROZOLE 1 MG GTUBE SCH (08:16)
[2019-12-04] MEDS: Cyanocobalamin (Vitamin B12) 1,000 MCG Tab GTUBE SCH (08:17)
[2019-12-04] MEDS: Digoxin 125 MCG Tab PO SCH (08:18)
[2019-12-04] MEDS: Atenolol 25 MG Tab GTUBE SCH (08:18)
[2019-12-04] MEDS: Furosemide 20 MG Tab GTUBE SCH (08:21)
[2019-12-04] MEDS: BENEFIBER GTUBE SCH ×3 (08:22→19:20)
[2019-12-04] MEDS: Warfarin 5 MG Tab GTUBE SCH (19:20)
[2019-12-04] MEDS: Montelukast 10 MG Tab GTUBE SCH (19:20)
[2019-12-04] MEDS: Simvastatin 20 MG Tab GTUBE SCH (19:20)
[2019-12-04] MEDS: Mirtazapine 15 MG Tab GTUBE SCH (19:21)
[2019-12-05 07:09] LABS: CHLORIDE,CL 95 mmol/L (98-107); SODIUM,NA 135 mmol/L (136-145)
[2019-12-05 07:10] LABS: ANION GAP 11.4 mmol/L (10-20)
[2019-12-05] MEDS: Furosemide 20 MG Tab GTUBE SCH (07:45)
[2019-12-05] MEDS: Digoxin 125 MCG Tab PO SCH (07:46)
[2019-12-05] MEDS: BENEFIBER GTUBE SCH ×3 (07:46→19:07)
[2019-12-05] MEDS: Cyanocobalamin (Vitamin B12) 1,000 MCG Tab GTUBE SCH (07:46)
[2019-12-05] MEDS: Loperamide 2 MG Cap GTUBE PRN ×2 (07:46→19:14)
[2019-12-05] MEDS: Atenolol 25 MG Tab GTUBE SCH (07:46)
[2019-12-05] MEDS: Cholestyramine/Sucrose Powder 4 GM Packet PO SCH ×2 (07:46→19:07)
[2019-12-05] MEDS: [UNRECOGNIZED DRUG - OTHER] GTUBE SCH (09:46)
[2019-12-05] MEDS: ANASTROZOLE 1 MG GTUBE SCH (09:46)
[2019-12-05] MEDS: predniSONE 10 MG Tab GTUBE SCH (09:46)
[2019-12-05] MEDS: Albuterol 0.083% 2.5 MG/3 ML Neb Soln INH PRN (14:52)
[2019-12-05] MEDS: Mirtazapine 15 MG Tab GTUBE SCH (19:07)
[2019-12-05] MEDS: Montelukast 10 MG Tab GTUBE SCH (19:07)
[2019-12-05] MEDS: Simvastatin 20 MG Tab GTUBE SCH (19:07)
[2019-12-05] MEDS: Warfarin 5 MG Tab GTUBE SCH (19:11)
[2019-12-06] MEDS: OMEPRAZOLE 20 MG/10 ML GTUBE SCH (06:30)
[2019-12-06] MEDS: Cholestyramine/Sucrose Powder 4 GM Packet PO SCH ×2 (08:12→19:44)
[2019-12-06] MEDS: Atenolol 25 MG Tab GTUBE SCH (08:12)
[2019-12-06] MEDS: predniSONE 10 MG Tab GTUBE SCH (08:14)
[2019-12-06] MEDS: Cyanocobalamin (Vitamin B12) 1,000 MCG Tab GTUBE SCH (08:14)
[2019-12-06] MEDS: Digoxin 125 MCG Tab PO SCH (08:14)
[2019-12-06] MEDS: BENEFIBER GTUBE SCH (08:15)
[2019-12-06] MEDS: Furosemide 20 MG Tab GTUBE SCH (08:15)
[2019-12-06] MEDS: ANASTROZOLE 1 MG GTUBE SCH (08:15)
[2019-12-06] MEDS: [UNRECOGNIZED DRUG - OTHER] GTUBE SCH (08:15)
--- NOTE | 2019-12-06 09:04 | PN ---
Progress Note for TONJA SPENCER Date: 12/05/2019 Room #: VM.217 SUBJECTIVE: This is an 84-year-old on swing bed recovering after right MCA stroke. She is working with therapy. Only concern today is that left hand continues to be quite swollen and painful. The patient did have findings of chondrocalcinosis on x-ray down in [place]. She has not had any IVs or warmth to suggest an infection. At the point she had it, they were considering colchicine versus avoiding steroids. However, low dose may provide some benefit and the patient is agreeable with trying. Her diarrhea has slowed down some since going on continuous feedings, but she is still having several bowel movements a day. She is not having any trouble with cough or shortness of breath. OBJECTIVE: Vital Signs: Her weight is 58.3 kg, temperature 98.8, pulse 64, blood pressure 136/66, respiratory rate 18, and O2 of 99% on room air. General: She is in no acute distress. Heart: Irregularly irregular. Lungs: Lung sounds today are clear to auscultation bilaterally without crackles or wheezes. Extremities: Warm and dry. She has 1+ edema over that left wrist, but 3+ in the hand with some redness, but no warmth involving the MCP joints. LABORATORY WORK: Shows the white count of 11.3, hemoglobin 12.1, platelets 272. INR 1.7. We did hold the dose last week when she went up to 3.5. Sodium 135, potassium 4.4, chloride 95, bicarb 33, BUN 13, creatinine 0.7, glucose 129. ASSESSMENT: 1. Left hand pain and swelling with history of stroke. The patient has reported chondrocalcinosis. We will do 10 mg of prednisone daily for the next 6 days to see if this helps long wall mining machine tender. However, we would likely do like 0.6 daily of colchicine, however, that would worsen her diarrhea. 2. Healthcare-associated pneumonia. This has been treated. White count has improved. Followup x-ray looked excellent. 3. Right middle cerebral artery stroke with dysphagia and left-sided weakness. She is making progress and working with therapies. 4. Urinary retention. Her catheter has been removed and she has been voiding okay. 5. Atrial fibrillation. She is on Coumadin. INR is just slightly subtherapeutic. We will adjust her dose and recheck Thursday. 6. Malnutrition, on tube feeds. We will continue to monitor. 7. Stage III breast cancer. She is on Arimidex. 8. Anemia. She is on Prilosec due to the G-tube placement. After she has completed 1 month of this, we will likely discontinue it or change to every other day. At this point, we are going to decrease from twice daily to daily. 9. Hyperlipidemia. She is on Zocor. 10.Mood disorder. She will continue her mirtazapine. 11.Diastolic heart failure. She is on Lasix. 12.Essential hypertension, on atenolol. PLAN: At this point, the patient will continue with swing bed cares and working with therapies. We will try the prednisone for her chondrocalcinosis. It was discovered She has been getting more benefiber per dose we will decrease it but go to QID after discussing with the nurse who heard from the bmw service technician to see if this will help her loose stools. MEYA: 12/05/2019 13:32:00 MODL: 12/05/2019 20:30:27 /[id number] MTDD
[2019-12-06] MEDS: [UNRECOGNIZED DRUG - OTHER] GTUBE SCH ×2 (11:59→17:16)
[2019-12-06] MEDS: Warfarin 5 MG Tab GTUBE SCH (19:43)
[2019-12-06] MEDS: Montelukast 10 MG Tab GTUBE SCH (19:44)
[2019-12-06] MEDS: Mirtazapine 15 MG Tab GTUBE SCH (19:44)
[2019-12-06] MEDS: Simvastatin 20 MG Tab GTUBE SCH (19:44)
[2019-12-07] MEDS: [UNRECOGNIZED DRUG - OTHER] GTUBE SCH ×4 (00:49→17:34)
[2019-12-07] MEDS: OMEPRAZOLE 20 MG/10 ML GTUBE SCH (06:06)
[2019-12-07] MEDS: Cyanocobalamin (Vitamin B12) 1,000 MCG Tab GTUBE SCH (08:21)
[2019-12-07] MEDS: Atenolol 25 MG Tab GTUBE SCH (08:22)
[2019-12-07] MEDS: Digoxin 125 MCG Tab PO SCH (08:22)
[2019-12-07] MEDS: Furosemide 20 MG Tab GTUBE SCH (08:22)
[2019-12-07] MEDS: predniSONE 10 MG Tab GTUBE SCH (08:22)
[2019-12-07] MEDS: [UNRECOGNIZED DRUG - OTHER] GTUBE SCH (08:24)
[2019-12-07] MEDS: ANASTROZOLE 1 MG GTUBE SCH (08:24)
[2019-12-07] MEDS: Cholestyramine/Sucrose Powder 4 GM Packet PO SCH ×2 (08:24→19:37)
[2019-12-07] MEDS: Simvastatin 20 MG Tab GTUBE SCH (19:36)
[2019-12-07] MEDS: Mirtazapine 15 MG Tab GTUBE SCH (19:36)
[2019-12-07] MEDS: Montelukast 10 MG Tab GTUBE SCH (19:37)
[2019-12-07] MEDS ORDERED: Warfarin 2.5 MG Tab GTUBE SCH ×2 (20:00)
[2019-12-08] MEDS: [UNRECOGNIZED DRUG - OTHER] GTUBE SCH ×5 (00:05→23:44)
[2019-12-08] MEDS: OMEPRAZOLE 20 MG/10 ML GTUBE SCH ×2 (05:52→06:01)
[2019-12-08] MEDS: Atenolol 25 MG Tab GTUBE SCH (08:01)
[2019-12-08] MEDS: [UNRECOGNIZED DRUG - OTHER] GTUBE SCH (08:03)
[2019-12-08] MEDS: predniSONE 10 MG Tab GTUBE SCH (08:03)
[2019-12-08] MEDS: ANASTROZOLE 1 MG GTUBE SCH (08:03)
[2019-12-08] MEDS: Digoxin 125 MCG Tab PO SCH (08:03)
[2019-12-08] MEDS: Cholestyramine/Sucrose Powder 4 GM Packet PO SCH ×2 (08:03→21:00)
[2019-12-08] MEDS: Cyanocobalamin (Vitamin B12) 1,000 MCG Tab GTUBE SCH (08:03)
[2019-12-08] MEDS: Furosemide 20 MG Tab GTUBE SCH (08:03)
--- NOTE | 2019-12-08 12:48 | PCM.SN.2 ---
- Free Text/Narrative Note: Patient is sleeping, hand and wrist much better with prednisone. Uric acid ok. Staff feels she might be more impulsive and I feel that could be the prednisone but she is only on 10. Plan to decrease to 5 and recheck labs Thursday for INR.
[2019-12-08] MEDS: Simvastatin 20 MG Tab GTUBE SCH (21:00)
[2019-12-08] MEDS: Mirtazapine 15 MG Tab GTUBE SCH (21:00)
[2019-12-08] MEDS: Warfarin 5 MG Tab GTUBE SCH (21:00)
[2019-12-08] MEDS: Montelukast 10 MG Tab GTUBE SCH (21:00)
[2019-12-08] MEDS: Sulfamethoxazole/Trimethoprim 800-160 MG Tab PO SCH (21:00)
[2019-12-09] MEDS: OMEPRAZOLE 20 MG/10 ML GTUBE SCH (06:03)
[2019-12-09] MEDS: [UNRECOGNIZED DRUG - OTHER] GTUBE SCH ×3 (06:03→17:32)
[2019-12-09] MEDS: Digoxin 125 MCG Tab PO SCH (07:54)
[2019-12-09] MEDS: Sulfamethoxazole/Trimethoprim 800-160 MG Tab PO SCH ×2 (07:54→23:03)
[2019-12-09] MEDS: Furosemide 20 MG Tab GTUBE SCH (07:54)
[2019-12-09] MEDS: Cyanocobalamin (Vitamin B12) 1,000 MCG Tab GTUBE SCH (07:54)
[2019-12-09] MEDS: predniSONE 5 MG Tab GTUBE SCH (07:54)
[2019-12-09] MEDS: ANASTROZOLE 1 MG GTUBE SCH (07:55)
[2019-12-09] MEDS: [UNRECOGNIZED DRUG - OTHER] GTUBE SCH (07:55)
[2019-12-09] MEDS: Cholestyramine/Sucrose Powder 4 GM Packet PO SCH ×2 (07:55→23:03)
[2019-12-09] MEDS: Atenolol 25 MG Tab GTUBE SCH (07:55)
[2019-12-09] MEDS: Mirtazapine 15 MG Tab GTUBE SCH (23:00)
[2019-12-09] MEDS: Warfarin 5 MG Tab GTUBE SCH (23:01)
[2019-12-09] MEDS: Montelukast 10 MG Tab GTUBE SCH (23:01)
[2019-12-09] MEDS: Simvastatin 20 MG Tab GTUBE SCH (23:01)
[2019-12-10] MEDS: [UNRECOGNIZED DRUG - OTHER] GTUBE SCH ×4 (04:27→17:12)
[2019-12-10] MEDS: OMEPRAZOLE 20 MG/10 ML GTUBE SCH (08:18)
[2019-12-10] MEDS: Cholestyramine/Sucrose Powder 4 GM Packet PO SCH (12:06)
[2019-12-10] MEDS: [UNRECOGNIZED DRUG - OTHER] GTUBE SCH (12:06)
[2019-12-10] MEDS: ANASTROZOLE 1 MG GTUBE SCH (12:06)
[2019-12-10] MEDS: Atenolol 25 MG Tab GTUBE SCH (12:07)
[2019-12-10] MEDS: predniSONE 5 MG Tab GTUBE SCH (12:07)
[2019-12-10] MEDS: Cyanocobalamin (Vitamin B12) 1,000 MCG Tab GTUBE SCH (12:07)
[2019-12-10] MEDS: Sulfamethoxazole/Trimethoprim 800-160 MG Tab PO SCH (12:07)
[2019-12-10] MEDS: Digoxin 125 MCG Tab PO SCH (12:07)
[2019-12-10] MEDS: Furosemide 20 MG Tab GTUBE SCH (12:07)
--- NOTE | 2019-12-10 14:39 | PCM.SN.2 ---
- Free Text/Narrative Note: Pt had G tube with became clogged at 3:00 am. Mulitple attempts to unclog with cokd and meat tenderizer did not work, Also flushing was not successful. I did visit with son Herve at 2:15 pm at [phone] and he consents that she goes to get new G tube in [place] and patient is also agreeable to go. 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 She had problems with severe bleeding from G tube placement and on 11/07/2019 she had to have embolization of her right gastric artery. She has not had concerns for COVID. She is being checked for C diff. It was now noted that she had urine going past her alfaro. Px Pt alert, with left sided weakness. Lungs clear, heart regular, Abdomen soft , G tube site not tender, not red.Ext koko IMPRESSION Plugged G tube Aphagia dysarthria Cerebral Vasular Disease Diarrhea, due to tube feedings versus c diff, awaiting sample. PLAN Spoke with Int Rad Dr Parker and he accepts pt to come to [facility] ER to have new G tube placed, talked to him at 2:20. She will need to go by ambulance for transport as no other servcie available for transport. Son updated at 2:35 about plan. She is expected to return her in a few hours.
[2019-12-11] MEDS: Simvastatin 20 MG Tab GTUBE SCH ×2 (00:17→19:46)
[2019-12-11] MEDS: Sulfamethoxazole/Trimethoprim 800-160 MG Tab PO SCH ×3 (00:17→19:45)
[2019-12-11] MEDS: Montelukast 10 MG Tab GTUBE SCH ×2 (00:17→19:46)
[2019-12-11] MEDS: Warfarin 5 MG Tab GTUBE SCH ×2 (00:17→19:46)
[2019-12-11] MEDS: Mirtazapine 15 MG Tab GTUBE SCH ×2 (00:18→19:46)
[2019-12-11] MEDS: Cholestyramine/Sucrose Powder 4 GM Packet PO SCH ×3 (00:19→19:46)
[2019-12-11] MEDS: [UNRECOGNIZED DRUG - OTHER] GTUBE SCH ×4 (02:26→17:45)
[2019-12-11] MEDS: OMEPRAZOLE 20 MG/10 ML GTUBE SCH (06:37)
[2019-12-11] MEDS: Loperamide 2 MG Cap GTUBE PRN (08:47)
[2019-12-11] MEDS: Cyanocobalamin (Vitamin B12) 1,000 MCG Tab GTUBE SCH (08:47)
[2019-12-11] MEDS: Atenolol 25 MG Tab GTUBE SCH (08:47)
[2019-12-11] MEDS: ANASTROZOLE 1 MG GTUBE SCH (08:48)
[2019-12-11] MEDS: Furosemide 20 MG Tab GTUBE SCH (08:48)
[2019-12-11] MEDS: [UNRECOGNIZED DRUG - OTHER] GTUBE SCH (08:48)
[2019-12-11] MEDS: Digoxin 125 MCG Tab PO SCH (08:48)
[2019-12-11] MEDS: predniSONE 5 MG Tab GTUBE SCH (08:48)
[2019-12-11] MEDS: Loperamide 2 MG Cap PO SCH (19:45)
[2019-12-12] MEDS: [UNRECOGNIZED DRUG - OTHER] GTUBE SCH ×6 (00:12→23:52)
--- NOTE | 2019-12-12 07:22 | PN ---
Progress Note for TONJA SPENCER Date: 12/11/2019 Room #: VM.217 SUBJECTIVE: This is an 84-year-old on swing bed after a stroke, right MCA, resulting in left hemiparesis, dysphagia, and dysarthria. Overall, her strength in that left side is improving. Unfortunately, her swallowing continues to be an issue and she is on tube feeds. Yesterday, it was plugged and she required transfer down to [place] to get it opened back up. She actually was not getting her tube feeds for several hours and had no problems with diarrhea per nursing report at that time, but as soon as she returned and restarted on tube feeds, she had diarrhea again, and we were able to get a stool sample for C. diff. She got a dose of Imodium already this morning but had not received any since around Thursday. She has had changing doses of Benefiber to try to treat this. She has also been on Questran twice daily. Clostridium difficile test was ordered and is pending. She has been on antibiotics for pneumonia and UTI and most recently is on Bactrim and was retaining up to 300 of urine. She would like to get the Drake back out, which we are able to do now that we have obtained a Clostridium difficile sample. Otherwise, she was not reporting any pain. She had gotten some prednisone for that left hand. Today is the last day planned on that for pseudogout. OBJECTIVE: VITAL SIGNS: Her weight 56.8 kg, temperature 96.5, pulse 85, blood pressure 108/59, respiratory rate 17, and O2 of 96 on room air. GENERAL: She is in no acute distress. HEART: Regularly irregular. LUNGS: Sounds are clear to auscultation bilaterally without crackles or wheezes. ABDOMEN: Positive bowel sounds. Soft, nontender. G-tube in place. EXTREMITIES: Warm and dry. No edema. MENTAL STATUS: She is very alert. She seems to recognize me. I did not go through orientation questions. Her speech is difficult to understand at times due to the aphasia. GENITOURINARY: Her petr area was inspected. She has just some small skin breakdown in the rectal area, but no deep ulcers or wounds. No stool is present. ASSESSMENT AND PLAN: 1. History of right middle cerebral artery stroke, working with therapies. 2. Left hand pain and swelling, possibly from the stroke but also some chondrocalcinosis. She has completed some prednisone. We will stop it and see how she does. 3. Urinary tract infection secondary to Enterobacter. She will complete her course of Bactrim of 5 days on the . Her culture was sensitive. 4. Atrial fibrillation. She was mildly subtherapeutic on her last INR. She is due for lab work tomorrow. 5. Urinary retention. This had improved. We will remove her Drake today and continue with bladder scanning. 6. Malnutrition. She is on tube feeds. If the C. difficile test is negative, we will likely be changing product due to diarrhea. We can also try to give her more Imodium in the meantime. 7. Diarrhea. Clostridium difficile test pending. 8. Stage III breast cancer, on Arimidex. 9. Anemia due to some bleeding after G-tube placement. She is on the Prilosec. I am going to change it to every other day. 10.Hyperlipidemia, on Zocor. 11.Mood changes. She is on mirtazapine. 12.Diastolic heart failure, on Lasix. 13.Essential hypertension, on atenolol. PLAN: At this point, the patient will continue on swing bed cares. We are working on improving her diarrhea which has been present since starting tube feeds, all of these other medications were mostly in place. We will get the C. diff test, especially since she has been on antibiotics. If positive, we will treat that; if not, we will look at other formulations for tube feeds. I am going to schedule her on some Imodium also twice daily. Continue aggressive skin cares in her petr area and remove the Drake today. MKA: 12/11/2019 11:06:41 MODL: 12/11/2019 11:46:09 /[id number]
[2019-12-12 07:28] LABS: CHLORIDE,CL 99 mmol/L (98-107); SODIUM,NA 137 mmol/L (136-145)
[2019-12-12 07:29] LABS: ANION GAP 13.6 mmol/L (10-20)
[2019-12-12] MEDS: [UNRECOGNIZED DRUG - OTHER] GTUBE SCH (07:48)
[2019-12-12] MEDS: Cholestyramine/Sucrose Powder 4 GM Packet PO SCH (07:48)
[2019-12-12] MEDS: ANASTROZOLE 1 MG GTUBE SCH (07:48)
[2019-12-12] MEDS: Loperamide 2 MG Cap PO SCH (07:49)
[2019-12-12] MEDS: Atenolol 25 MG Tab GTUBE SCH (07:49)
[2019-12-12] MEDS: Sulfamethoxazole/Trimethoprim 800-160 MG Tab PO SCH (07:49)
[2019-12-12] MEDS: Furosemide 20 MG Tab GTUBE SCH (07:49)
[2019-12-12] MEDS: Cyanocobalamin (Vitamin B12) 1,000 MCG Tab GTUBE SCH (07:49)
[2019-12-12] MEDS: Digoxin 125 MCG Tab PO SCH (07:49)
[2019-12-12] MEDS: Mirtazapine 15 MG Tab GTUBE SCH (19:39)
[2019-12-12] MEDS: Warfarin 5 MG Tab GTUBE SCH (19:39)
[2019-12-12] MEDS: Cholestyramine/Sucrose Powder 4 GM Packet GTUBE SCH (19:39)
[2019-12-12] MEDS: Simvastatin 20 MG Tab GTUBE SCH (19:40)
[2019-12-12] MEDS: Loperamide 2 MG Cap GTUBE SCH (19:40)
[2019-12-12] MEDS: Montelukast 10 MG Tab GTUBE SCH (19:40)
[2019-12-12] MEDS ORDERED: Sulfamethoxazole/Trimethoprim 200-40 MG/5 ML Susp 20 ML Cup GTUBE SCH (20:00)
[2019-12-13] MEDS: Omeprazole 20 MG Cap.CR GTUBE SCH (06:17)
[2019-12-13] MEDS: [UNRECOGNIZED DRUG - OTHER] GTUBE SCH ×3 (06:17→18:23)
[2019-12-13] MEDS: Cholestyramine/Sucrose Powder 4 GM Packet GTUBE SCH ×2 (07:56→19:49)
[2019-12-13] MEDS: ANASTROZOLE 1 MG GTUBE SCH (07:56)
[2019-12-13] MEDS: Loperamide 2 MG Cap GTUBE SCH (07:56)
[2019-12-13] MEDS: [UNRECOGNIZED DRUG - OTHER] GTUBE SCH (07:56)
[2019-12-13] MEDS: Digoxin 125 MCG Tab GTUBE SCH (07:57)
[2019-12-13] MEDS: Atenolol 25 MG Tab GTUBE SCH (07:57)
[2019-12-13] MEDS: Furosemide 20 MG Tab GTUBE SCH (07:57)
[2019-12-13] MEDS: Cyanocobalamin (Vitamin B12) 1,000 MCG Tab GTUBE SCH (07:57)
[2019-12-13] MEDS ORDERED: LOPERAMIDE 2 MG/15 ML GTUBE PRN (08:45)
[2019-12-13] MEDS: Montelukast 10 MG Tab GTUBE SCH (19:47)
[2019-12-13] MEDS: LOPERAMIDE 2 MG/15 ML GTUBE SCH (19:48)
[2019-12-13] MEDS: Mirtazapine 15 MG Tab GTUBE SCH (19:48)
[2019-12-13] MEDS: Warfarin 5 MG Tab GTUBE SCH (19:48)
[2019-12-13] MEDS: Simvastatin 20 MG Tab GTUBE SCH (19:49)
[2019-12-14] MEDS: [UNRECOGNIZED DRUG - OTHER] GTUBE SCH ×4 (00:34→17:49)
[2019-12-14] MEDS: ANASTROZOLE 1 MG GTUBE SCH (08:11)
[2019-12-14] MEDS: Cholestyramine/Sucrose Powder 4 GM Packet GTUBE SCH ×2 (08:11→19:51)
[2019-12-14] MEDS: Atenolol 25 MG Tab GTUBE SCH (08:11)
[2019-12-14] MEDS: [UNRECOGNIZED DRUG - OTHER] GTUBE SCH (08:11)
[2019-12-14] MEDS: Cyanocobalamin (Vitamin B12) 1,000 MCG Tab GTUBE SCH (08:14)
[2019-12-14] MEDS: Digoxin 125 MCG Tab GTUBE SCH (08:14)
[2019-12-14] MEDS: Furosemide 20 MG Tab GTUBE SCH (08:14)
[2019-12-14] MEDS: LOPERAMIDE 2 MG/15 ML GTUBE SCH ×2 (08:15→19:51)
[2019-12-14] MEDS ORDERED: [UNRECOGNIZED DRUG - REMARK] GTUBE PRN (08:37)
[2019-12-14] MEDS: guaiFENesin 100 MG/5 ML Soln 10 ML UD Cup GTUBE SCH ×4 (09:41→22:29)
--- NOTE | 2019-12-14 10:34 | PN ---
Progress Note for TONJA SPENCER Date: 12/14/2019 Room #: VM.217 SUBJECTIVE: An 84-year-old recovering after a left middle cerebral artery stroke. The patient was having quite a bit of diarrhea. However, nursing tells me that she has not had that now in the last 24 hours. We found out her C diff test was rejected that was sent in over the weekend. She actually had to have a Drake catheter placed to allow for collection. I told them yesterday I was unwilling to replace the Drake just to collect C diff. When she was taken off tube feeds due to a clogged tube, she immediately stopped having diarrhea. The patient denies any stomach pain. Her main concern is phlegm. She is still getting suctioned. She coughs it up. She is breathing okay. She is not having any chest pain. No fever, no chills. The patient did have another UTI. She was retaining about 300 of urine at that time. She completed her course of antibiotics for Enterobacter on the with Bactrim. OBJECTIVE: Vital Signs: Otherwise, her temperature is 96, pulse 76, weight 55.3 kg, blood pressure 114/74, respiratory rate 18, and O2 of 96 on room air. General: She is in no acute distress. Heart: Regular. Lungs: Lung sounds do show some scattered rhonchi throughout, but clears with taking deeper breaths. No wheezing. Abdomen: Nondistended. Extremities: Warm and dry. No edema. Mental Status: She is alert. She has expressive aphasia. LABORATORY DATA: Lab work today did review her INR is therapeutic at 2.4. ASSESSMENT AND PLAN: 1. Right middle cerebral artery stroke with dysphagia, aphasia, and left-sided weakness. I saw her actually walking up the ceja with therapy, just standby assistance. She was doing remarkably well, not even using a cane or walker. She will continue working with therapies. 2. Left hand pain and swelling probably from pseudogout. She completed prednisone. That seems to be doing fine. 3. Enterobacter urinary tract infection, treated. 4. Urinary retention. The Drake is out again. We will continue to monitor. 5. Atrial fibrillation. INR is therapeutic. We will continue her atenolol. We will repeat an INR next week. 6. Malnutrition. She is on tube feeds. 7. Diarrhea. At this point, it is appears to have resolved on scheduled Imodium twice daily and Questran. We will go ahead and cancel the Clostridium difficile testing. 8. Stage III breast cancer, on Arimidex. 9. Anemia due to gastrointestinal bleeding. She is on Prilosec every other day. This was after the G-tube was placed. 10.Hyperlipidemia, on Zocor. 11.Mood changes. Mirtazapine. 12.Diastolic heart failure, on Lasix. 13.Essential hypertension. 14.Phlegm. We will continue with sectioning as needed and I will order her Mucinex. The patient actually asked for something for this today. PLAN: The patient will continue swing bed care. She will continue working with therapies. OT has reached a point with ADLs where she no longer needs those. However, likely, they will resume with some hand therapy for her as well. Continue with speech therapy. Continue with aggressive skin cares to prevent any sacral ulcers. MKA: 12/14/2019 09:19:29 MODL: 12/14/2019 09:42:40 /[id number]
[2019-12-14] MEDS: Simvastatin 20 MG Tab GTUBE SCH (19:51)
[2019-12-14] MEDS: Montelukast 10 MG Tab GTUBE SCH (19:54)
[2019-12-14] MEDS: Mirtazapine 15 MG Tab GTUBE SCH (19:54)
[2019-12-14] MEDS ORDERED: Warfarin 2.5 MG Tab GTUBE SCH (20:00)
[2019-12-15] MEDS: [UNRECOGNIZED DRUG - OTHER] GTUBE SCH ×4 (00:57→17:48)
[2019-12-15] MEDS: guaiFENesin 100 MG/5 ML Soln 10 ML UD Cup GTUBE SCH ×6 (02:08→21:51)
[2019-12-15] MEDS: Omeprazole 20 MG Cap.CR GTUBE SCH (06:29)
[2019-12-15] MEDS: Atenolol 25 MG Tab GTUBE SCH (08:02)
[2019-12-15] MEDS: ANASTROZOLE 1 MG GTUBE SCH (08:03)
[2019-12-15] MEDS: Digoxin 125 MCG Tab GTUBE SCH (08:03)
[2019-12-15] MEDS: Cholestyramine/Sucrose Powder 4 GM Packet GTUBE SCH ×2 (08:03→20:08)
[2019-12-15] MEDS: Cyanocobalamin (Vitamin B12) 1,000 MCG Tab GTUBE SCH (08:03)
[2019-12-15] MEDS: [UNRECOGNIZED DRUG - OTHER] GTUBE SCH (08:03)
[2019-12-15] MEDS: Furosemide 20 MG Tab GTUBE SCH (08:03)
[2019-12-15] MEDS: LOPERAMIDE 2 MG/15 ML GTUBE SCH ×2 (08:05→20:07)
[2019-12-15] MEDS: Montelukast 10 MG Tab GTUBE SCH (20:07)
[2019-12-15] MEDS: Warfarin 5 MG Tab GTUBE SCH (20:08)
[2019-12-15] MEDS: Simvastatin 20 MG Tab GTUBE SCH (20:08)
[2019-12-15] MEDS: Mirtazapine 15 MG Tab GTUBE SCH (20:08)
[2019-12-16] MEDS: [UNRECOGNIZED DRUG - OTHER] GTUBE SCH ×4 (00:45→17:44)
[2019-12-16] MEDS: guaiFENesin 100 MG/5 ML Soln 10 ML UD Cup GTUBE SCH ×6 (02:16→22:38)
[2019-12-16] MEDS: Digoxin 125 MCG Tab GTUBE SCH (09:21)
[2019-12-16] MEDS: Furosemide 20 MG Tab GTUBE SCH (09:21)
[2019-12-16] MEDS: Cholestyramine/Sucrose Powder 4 GM Packet GTUBE SCH ×2 (09:21→19:32)
[2019-12-16] MEDS: ANASTROZOLE 1 MG GTUBE SCH (09:22)
[2019-12-16] MEDS: LOPERAMIDE 2 MG/15 ML GTUBE SCH ×2 (09:22→19:33)
[2019-12-16] MEDS: [UNRECOGNIZED DRUG - OTHER] GTUBE SCH (09:22)
[2019-12-16] MEDS: Cyanocobalamin (Vitamin B12) 1,000 MCG Tab GTUBE SCH (09:22)
[2019-12-16] MEDS: Atenolol 25 MG Tab GTUBE SCH (09:23)
[2019-12-16] MEDS: Simvastatin 20 MG Tab GTUBE SCH (19:33)
[2019-12-16] MEDS: Warfarin 5 MG Tab GTUBE SCH (19:33)
[2019-12-16] MEDS: Montelukast 10 MG Tab GTUBE SCH (19:33)
[2019-12-16] MEDS: Mirtazapine 15 MG Tab GTUBE SCH (19:33)
[2019-12-17] MEDS: [UNRECOGNIZED DRUG - OTHER] GTUBE SCH ×5 (00:10→23:48)
[2019-12-17] MEDS: guaiFENesin 100 MG/5 ML Soln 10 ML UD Cup GTUBE SCH ×6 (02:17→23:48)
[2019-12-17] MEDS: Omeprazole 20 MG Cap.CR GTUBE SCH (06:59)
[2019-12-17] MEDS: [UNRECOGNIZED DRUG - OTHER] GTUBE SCH (08:19)
[2019-12-17] MEDS: ANASTROZOLE 1 MG GTUBE SCH (08:19)
[2019-12-17] MEDS: LOPERAMIDE 2 MG/15 ML GTUBE SCH ×2 (08:19→19:37)
[2019-12-17] MEDS: Digoxin 125 MCG Tab GTUBE SCH (08:20)
[2019-12-17] MEDS: Furosemide 20 MG Tab GTUBE SCH (08:20)
[2019-12-17] MEDS: Cyanocobalamin (Vitamin B12) 1,000 MCG Tab GTUBE SCH (08:20)
[2019-12-17] MEDS: Cholestyramine/Sucrose Powder 4 GM Packet GTUBE SCH ×2 (08:20→19:33)
[2019-12-17] MEDS: Atenolol 25 MG Tab GTUBE SCH ×2 (08:20→12:38)
[2019-12-17] MEDS: Warfarin 5 MG Tab GTUBE SCH (19:33)
[2019-12-17] MEDS: Montelukast 10 MG Tab GTUBE SCH (19:33)
[2019-12-17] MEDS: Mirtazapine 15 MG Tab GTUBE SCH (19:33)
[2019-12-17] MEDS: Simvastatin 20 MG Tab GTUBE SCH (19:33)
[2019-12-18] MEDS: guaiFENesin 100 MG/5 ML Soln 10 ML UD Cup GTUBE SCH ×6 (02:45→21:08)
[2019-12-18] MEDS: [UNRECOGNIZED DRUG - OTHER] GTUBE SCH ×3 (06:03→18:08)
[2019-12-18] MEDS: Cholestyramine/Sucrose Powder 4 GM Packet GTUBE SCH ×2 (08:09→20:57)
[2019-12-18] MEDS: LOPERAMIDE 2 MG/15 ML GTUBE SCH ×2 (08:09→20:57)
[2019-12-18] MEDS: Furosemide 20 MG Tab GTUBE SCH (08:09)
[2019-12-18] MEDS: ANASTROZOLE 1 MG GTUBE SCH (08:09)
[2019-12-18] MEDS: [UNRECOGNIZED DRUG - OTHER] GTUBE SCH (08:09)
[2019-12-18] MEDS: Digoxin 125 MCG Tab GTUBE SCH (08:10)
[2019-12-18] MEDS: Cyanocobalamin (Vitamin B12) 1,000 MCG Tab GTUBE SCH (08:10)
[2019-12-18] MEDS: Atenolol 25 MG Tab GTUBE SCH (08:10)
[2019-12-18] MEDS: Simvastatin 20 MG Tab GTUBE SCH (20:56)
[2019-12-18] MEDS: Mirtazapine 15 MG Tab GTUBE SCH (20:56)
[2019-12-18] MEDS: Warfarin 5 MG Tab GTUBE SCH (20:56)
[2019-12-18] MEDS: Montelukast 10 MG Tab GTUBE SCH (20:56)
[2019-12-19] MEDS: [UNRECOGNIZED DRUG - OTHER] GTUBE SCH ×5 (00:59→23:13)
[2019-12-19] MEDS: guaiFENesin 100 MG/5 ML Soln 10 ML UD Cup GTUBE SCH ×6 (00:59→21:06)
[2019-12-19] MEDS: Omeprazole 20 MG Cap.CR GTUBE SCH (06:28)
[2019-12-19] MEDS: ANASTROZOLE 1 MG GTUBE SCH (08:35)
[2019-12-19] MEDS: [UNRECOGNIZED DRUG - OTHER] GTUBE SCH (08:35)
[2019-12-19] MEDS: Cholestyramine/Sucrose Powder 4 GM Packet GTUBE SCH ×2 (08:36→20:21)
[2019-12-19] MEDS: Furosemide 20 MG Tab GTUBE SCH (08:36)
[2019-12-19] MEDS: Atenolol 25 MG Tab GTUBE SCH (08:36)
[2019-12-19] MEDS: Cyanocobalamin (Vitamin B12) 1,000 MCG Tab GTUBE SCH (08:36)
[2019-12-19] MEDS: LOPERAMIDE 2 MG/15 ML GTUBE SCH ×2 (08:36→20:21)
[2019-12-19] MEDS: Digoxin 125 MCG Tab GTUBE SCH (08:36)
[2019-12-19] MEDS: Mirtazapine 15 MG Tab GTUBE SCH (20:20)
[2019-12-19] MEDS: Simvastatin 20 MG Tab GTUBE SCH (20:20)
[2019-12-19] MEDS: Warfarin 5 MG Tab GTUBE SCH (20:20)
[2019-12-19] MEDS: Montelukast 10 MG Tab GTUBE SCH (20:20)
[2019-12-20] MEDS: guaiFENesin 100 MG/5 ML Soln 10 ML UD Cup GTUBE SCH ×6 (02:06→21:42)
[2019-12-20] MEDS: [UNRECOGNIZED DRUG - OTHER] GTUBE SCH ×4 (07:00→23:34)
[2019-12-20 07:37] LABS: ANION GAP 11.1 mmol/L (10-20); CHLORIDE,CL 103 mmol/L (98-107); SODIUM,NA 139 mmol/L (136-145)
[2019-12-20] MEDS: Atenolol 25 MG Tab GTUBE SCH (07:42)
[2019-12-20] MEDS: Furosemide 20 MG Tab GTUBE SCH (07:43)
[2019-12-20] MEDS: Digoxin 125 MCG Tab GTUBE SCH (07:43)
[2019-12-20] MEDS: Cholestyramine/Sucrose Powder 4 GM Packet GTUBE SCH ×2 (07:43→20:01)
[2019-12-20] MEDS: Cyanocobalamin (Vitamin B12) 1,000 MCG Tab GTUBE SCH (07:43)
[2019-12-20] MEDS: [UNRECOGNIZED DRUG - OTHER] GTUBE SCH (07:50)
[2019-12-20] MEDS: LOPERAMIDE 2 MG/15 ML GTUBE SCH ×2 (07:50→20:00)
[2019-12-20] MEDS: ANASTROZOLE 1 MG GTUBE SCH (07:50)
[2019-12-20] MEDS: Simvastatin 20 MG Tab GTUBE SCH (20:01)
[2019-12-20] MEDS: Mirtazapine 15 MG Tab GTUBE SCH (20:01)
[2019-12-20] MEDS: Montelukast 10 MG Tab GTUBE SCH (20:01)
[2019-12-20] MEDS: Warfarin 2.5 MG Tab GTUBE SCH (20:01)
[2019-12-21] MEDS: guaiFENesin 100 MG/5 ML Soln 10 ML UD Cup GTUBE SCH ×6 (03:54→22:40)
[2019-12-21] MEDS: [UNRECOGNIZED DRUG - OTHER] GTUBE SCH ×2 (06:16→12:48)
[2019-12-21] MEDS: Omeprazole 20 MG Cap.CR GTUBE SCH (06:16)
[2019-12-21] MEDS: Atenolol 25 MG Tab GTUBE SCH (07:50)
[2019-12-21] MEDS: Cholestyramine/Sucrose Powder 4 GM Packet GTUBE SCH ×2 (07:50→19:42)
[2019-12-21] MEDS: Cyanocobalamin (Vitamin B12) 1,000 MCG Tab GTUBE SCH (07:52)
[2019-12-21] MEDS: Digoxin 125 MCG Tab GTUBE SCH (07:52)
[2019-12-21] MEDS: Furosemide 20 MG Tab GTUBE SCH (07:53)
[2019-12-21] MEDS: LOPERAMIDE 2 MG/15 ML GTUBE SCH ×2 (07:54→19:43)
[2019-12-21] MEDS: [UNRECOGNIZED DRUG - OTHER] GTUBE SCH (09:49)
[2019-12-21] MEDS: ANASTROZOLE 1 MG GTUBE SCH (09:49)
[2019-12-21] MEDS: Nystatin Susp 100,000 Unit/ML 5 ML UD Cup PO SCH ×2 (12:48→19:44)
--- NOTE | 2019-12-21 18:41 | PN ---
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 She has made great strides with her walking and endurance. Even her left hand is better with no swelling or pain. She was started on Mucinex last week. She asked me about it today. She is getting it through her tube feeds. The speech therapist thinks it has helped with her phlegm and speech. She is not coughing as much. The problem is she just is unable to swallow, so she is on tube feeds. She seemed to do better with the 1 preparation Vivanex and when she was more on the Vitalent, she seems to be having more loose stools. She tells me it is only about twice a week and she can notify staff to help her to the bathroom, but if she does not get there in time, she will have an accident. She is having no abdominal pain. She denies any shortness of breath. C diff test was collected, but they could not use the sample. Clinically, it was not felt that she had C diff. She has been treated with antibiotics for UTI on 11/14 and 12/07. She did have a Drake in place due to urinary retention, but bladder scans have been okay. OBJECTIVE: Vital Signs: Her temperature is 97.6, her pulse is 90, her blood pressure is 138/76, her respiratory rate is 16, O2 of 100 on room air, her weight is 55 kg. General: She is in no acute distress. Heart: Irregularly irregular. Lungs: Sounds are clear to auscultation bilaterally without crackles or wheezes. Extremities: Warm and dry. No edema. Mental Status: She is alert. She does have expressive aphasia. LABORATORY DATA: Lab work reviewed from yesterday showed a white count normal 9.5, hemoglobin 11.9, platelets 286. INR 3.1. Sodium 139, potassium 4.1, chloride 103, bicarb 29, BUN 20, creatinine 0.6, glucose 118, calcium 9. COVID- 19 testing was negative. ASSESSMENT AND PLAN: 1. 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 She continues to work with therapies. We will transition over to the [facility] for further therapies tomorrow especially with Speech Therapy to see if she reaches a point where she is safe to try a swallow eval. 2. Left hand pain and swelling probably pseudogout, resolved. She was treated with a course of prednisone for pseudogout. 3. Enterobacter urinary tract infection, treated. 4. Urinary retention. Drake is out. She is no longer having residuals. 5. Atrial fibrillation. Slightly supratherapeutic INR. We will recheck tomorrow. She is on atenolol. We will adjust her doses of Coumadin. 6. Malnutrition, on the tube feeds. We may be able to transition back to bolus feeding [facility] at [facility]. We will have the dietitian involved. 7. Diarrhea. At this point, it seems to be tube feed related. We already have her on scheduled Imodium and Questran. She has not used p.r.n. Imodium for about a week. 8. Stage III breast cancer, on Arimidex. 9. Anemia due to gastrointestinal bleeding from that G-tube placement. Her hemoglobin is now improved. We will continue the Prilosec for now. Anticipate stopping in the next month. 10.Essential hypertension, controlled on home medications. 11.Chronic diastolic heart failure, on Lasix. 12.Mood changes, on the Remeron, likely some depression due to her stroke. 13.Hyperlipidemia, on Zocor. PLAN: At this point, the patient will transition over to [facility] tomorrow for further cares. We will dictate a full discharge summary at that point. I will recheck an INR. MKA: 12/21/2019 17:59:40 MODL: 12/21/2019 18:23:19 /[id number] KALLIE
[2019-12-21] MEDS: Mirtazapine 15 MG Tab GTUBE SCH (19:43)
[2019-12-21] MEDS: Simvastatin 20 MG Tab GTUBE SCH (19:43)
[2019-12-21] MEDS: Montelukast 10 MG Tab GTUBE SCH (19:43)
[2019-12-21] MEDS: Warfarin 2.5 MG Tab GTUBE SCH (19:44)
[2019-12-22] MEDS: guaiFENesin 100 MG/5 ML Soln 10 ML UD Cup GTUBE SCH ×3 (02:47→10:18)
[2019-12-22] MEDS: [UNRECOGNIZED DRUG - OTHER] GTUBE SCH (07:34)
[2019-12-22] MEDS: Cholestyramine/Sucrose Powder 4 GM Packet GTUBE SCH (07:34)
[2019-12-22] MEDS: ANASTROZOLE 1 MG GTUBE SCH (07:34)
[2019-12-22] MEDS: Digoxin 125 MCG Tab GTUBE SCH (07:35)
[2019-12-22] MEDS: Atenolol 25 MG Tab GTUBE SCH (07:35)
[2019-12-22] MEDS: LOPERAMIDE 2 MG/15 ML GTUBE SCH (07:36)
[2019-12-22] MEDS: Nystatin Susp 100,000 Unit/ML 5 ML UD Cup PO SCH (07:36)
[2019-12-22] MEDS: Cyanocobalamin (Vitamin B12) 1,000 MCG Tab GTUBE SCH (07:36)
[2019-12-22] MEDS: Furosemide 20 MG Tab GTUBE SCH (07:36)
[2019-12-22 07:37] VITALS: BP 140/57; PULSE 69
[2019-12-22] MEDS ORDERED: Non-Formulary Medication 1 Each GTUBE SCH (08:00)
--- NOTE | 2019-12-22 12:49 | DISCH ---
PRIMARY DISCHARGE DIAGNOSES: 1. A right middle cerebral artery stroke with resulted left-sided weakness, aphasia, and dysphagia. This was due to a subtherapeutic INR when Coumadin was held for a hematoma that occurred after a left axillary biopsy, which diagnosed her with breast cancer. 2. Stage III breast cancer, on hormonal therapy with Arimidex. 3. Episode of pseudogout in the left hand, resolved. She is off prednisone. 4. Urinary tract infection on 11/15/2019 with strep viridans and coag-negative staph and on 12/08/2019 with Enterobacter, treated. 5. Left upper lobe pneumonia treated with Ceftin antibiotics in October, resolved. 6. Loose stools felt to be related to tube feeds. Clostridium difficile test was collected, but the specimen was rejected. Clinically, the patient stopped having diarrhea when tube feeds were stopped. She also had to be sent to [place] due to a plugged G-tube due to medications and this was resolved. She seems to be doing much better, having only 2 episodes per week on the Questran and Benefiber. 7. Atrial fibrillation, rate controlled on Coumadin. INR therapeutic at 2.1 on discharge. 8. Urinary retention after her stroke. This has resolved. Drake catheter was removed. 9. Malnutrition, doing well on tube feeds. No recent albumins have been drawn. She is maintaining her weight. 10.Anemia due to gastrointestinal bleeding from the G-tube placement. Her hemoglobins have been stable. She is weaning down on Prilosec. 11.Essential hypertension, controlled on home medications. 12.Chronic diastolic heart failure, stable on Lasix. 13.Mood changes with adjustment disorder and depression likely due to her stroke. She will remain on Remeron. 14.Hyperlipidemia, on Zocor. REASON FOR ADMISSION: On the date of admission, this 84-year-old female who had suffered a stroke and had a prolonged hospital stay in [place] was transitioned back to [place] for further rehabilitation. She was initially not able to get up and walk due to the left-sided weakness. However, she made great improvement and worked hard with therapies while she was here. She is even to the point where she is able to use the left hand and pull up her pants. However, when she had accidents with diarrhea, she needed some assistance for cleaning it up. Her biggest deficit was with the speech and swallowing. Her speech improved to the point where we can understand her quite well and she can express her needs. She was also expressing her needs to use the bathroom and was able to do this effectively after her Drake had been placed for urinary retention and was removed. It was reinserted at one point just to try to collect the C diff test. However, that specimen was rejected. The patient overall was having no fevers. Her white count was normal. She was not having any cough or shortness of breath. She came here on oxygen, but that was weaned off as well. At one point, her white count did go up to 23,000. That was on 11/16/2019. At that point is when she was started on antibiotics for pneumonia, which also was treated in [place] in [place]. However, this short course did not take care of her infection and she did better with a longer course of antibiotics here. The patient was very polite, answered questions appropriately. PHYSICAL EXAMINATION: Vital Signs: On discharge, her weight 55.3 kg, temperature 96.2, pulse 74, blood pressure 135/59, respiratory rate 18, O2 of 98% on room air. General: She is in no acute distress. Heart: Irregularly irregular. Lungs: Her lung sounds were clear to auscultation bilaterally without crackles or wheezes. Abdomen: Nondistended, nontender. G-tube in place with no drainage. Extremities: Warm and dry. No edema. Mental Status: She is alert. She is orientated x3. She has expressive aphasia, but we are able to understand her needs. DISCHARGE PLANS AND INSTRUCTIONS: The patient is transitioning over to [facility] for further therapies. She will continue with the tube feeds. She seems to tolerate the Vivonex. The best we will continue at 55 mL/hr. Dietitian will follow over there and likely will transition back to bolus feeding for home. She will get PT, OT, and Speech at the [facility]. She will have free water flushes 150 three times a day and 30 mL after her medications if needed. She will need all medications crushed and given through the G-tube. She was getting 100 four times a day of free water, but we adjusted to 3 times a day on transfer to try to coordinate better with medications. She may have [facility] standing orders. The patient was do not resuscitate on her admission to [facility] and she will continue with those orders on discharge. Plan is ultimately to return home with her son, where she lived before. She will continue on Arimidex for breast cancer. This was received in special preparation to use through her G-tube with the assistance of Pharmacy. I will contact the [facility]R Clinic and her next INR will be due on 12/29/2019. Greater than 30 minutes spent on this discharge. MKA: 12/22/2019 11:09:36 MODL: 12/22/2019 12:01:51 /[id number]
[2019-12-22] MEDS ORDERED: Warfarin 5 MG Tab GTUBE SCH (20:00)
== END 2019-12-22 10:45 | DRG 56 ==
LOC: VM.MS 11-11 12:25
PROVIDERS: ADMIT Internal Medicine; ATTEND Internal Medicine
DX: I69.354 Hemiplegia and hemiparesis following cerebral infarction affecting left non-dominant side (principal); J18.9 Pneumonia, unspecified organism; G81.94 Hemiplegia, unspecified affecting left nondominant side; N39.0 Urinary tract infection, site not specified; I50.32 Chronic diastolic (congestive) heart failure; E46 Unspecified protein-calorie malnutrition; D62 Acute posthemorrhagic anemia; I48.20 Chronic atrial fibrillation, unspecified; I69.320 Aphasia following cerebral infarction; C50.919 Malignant neoplasm of unspecified site of unspecified female breast; Z20.828 Contact with and (suspected) exposure to other viral communicable diseases; Z68.20 Body mass index [BMI] 20.0-20.9, adult; M10.9 Gout, unspecified; B96.89 Other specified bacterial agents as the cause of diseases classified elsewhere; R19.7 Diarrhea, unspecified; I48.91 Unspecified atrial fibrillation; R33.9 Retention of urine, unspecified; E78.5 Hyperlipidemia, unspecified; F39 Unspecified mood [affective] disorder; R47.1 Dysarthria and anarthria; R13.10 Dysphagia, unspecified; I11.0 Hypertensive heart disease with heart failure; F32.9 Major depressive disorder, single episode, unspecified; E04.2 Nontoxic multinodular goiter
CPT/HCPCS: 36415; 51701; 51702; 51798; 71045; 80048; 81001; 81003; 82962; 84550; 85025; 85610; 87070; 87077; 87086; 87088; 87186; 87205; 87493; 92507-GN; 92522-GN; 92526-GN; 92610-GN; 94640; 94760; 96125; 97110-GO; 97110-GP; 97112-GO; 97116-GP; 97129-GN; 97130-GN; 97161-GP; 97165-GO; 97168-GO; 97530-GP; 97535-GO; A9270-GY; J7512; J7613-GY; U0002